=== PATIENT | male | born 1940 | race Caucasian/White ===

== ENCOUNTER 2017-07-31 06:30 | Day surgery (SDC) | payer MEDICARE, OTHER ==
[~2017-07-31] VITALS: Ht 185.4 cm; Wt 89.8 kg
[~2017-07-31 06:30] MED LIST: AMBIEN5 MG PO; ASPIR-LOW81 MG PO; ASPIRIN EC81 MG PO; ASPIRIN325 MG PO; AUGMENTIN 875-1 EACH PO; CENTRUM SILVER1 EAC6 PO; DILAUDID4 MG PO; ENALAPRIL MALEA10 MG PO; FISH OIL500 MG PO; FLUOCINONIDE-E15 GM TP; HYDROCODON-ACE1 EA10 PO; INDOMETHACIN50 MG PO; IRON325 M1 PO; KEFLEX500 MG PO; LIDEX30 GM TP; NIACIN500 M1 PO; NIACIN500 M2 PO; NORCO 5-325 TA1 EACH PO; SPIRONOLACTONE25 MG PO; VASOTEC5 MG PO; VITAMIN C500 M1 PO; VITAMIN D2000 UNIT PO
--- NOTE | 2017-07-31 08:47 | NUR ---
07/31/17 0847 Pal Bacon REPOSITIONED IN BED AT 0830 AND GAVE SIPS OF WATER WITHOUT PROBLEMS. CONTINUES TO DENY NAUSEA. REVIEWED DISCHARGE INSTRUCITONS WITH PT AND AT BEDSIDE. ASSISTING PT GETTING DRESSED SITTING ON EDGE OF BED.
--- NOTE | 2017-08-01 12:56 | OR ---
[facility] [address] [place], [place] [address] Signed DATE OF OPERATION: 07/31/2017 SURGEON: Ramos Nathan MD PREOPERATIVE DIAGNOSIS: History of stage IV colon carcinoma, status post left colectomy and extended right segmentectomy in 2012. POSTOPERATIVE DIAGNOSIS: Diverticular changes of colon. No evidence of recurrent polyp or cancer. PROCEDURE: Total colonoscopy to cecum. ANESTHESIA: Intravenous sedation, fentanyl 100 mcg and Versed 4 mg. INDICATION: This 77-year-old white man is a patient of Dr. Roberto Carlos Gil. He is known to me from the past having undergone left hemicolectomy as well as subsequent right extended trisegmentectomy by Dr. Abdiel Alvarado in [place], [place] at [facility]. He has had no evidence of recurrent disease since that time. He is known to have portal hypertension with esophageal varices, but without bleeding. This is most likely related to extended trisegmentectomy. He is free of bleeding, diarrhea or constipation problems. He is here for surveillance colonoscopy. He understands the risks of bleeding, infection, and perforation related to colonoscopy and wished to proceed. FINDINGS: The prep was good. Complete colonoscopy was undertaken of the cecum without problem. There was scattered diverticula throughout the colon. There was no sign of stricture. The anastomosis was widely patent. He had no stigmata of portal hypertension at least as regards the colon. There were no polyps and no sign of recurrent cancer. DESCRIPTION OF PROCEDURE: The patient was brought to the endoscopy suite, placed in the lateral decubitus position, and given intravenous sedation to the point of slurred speech and nystagmus with full cardiopulmonary monitoring. Electronically Signed By: RAMOS NATHAN MD 08/01/17 1256 PATIENT NAME: TOPHER SULLIVAN OPERATIVE REPORT DATE OF : 42 REPORT #: [id number] PHYSICIAN: RAMOS NATHAN MD PCP: ROBERTO CARLOS GIL MD REPORT IS CONFIDENTIAL AND NOT TO BE RELEASED WITHOUT AUTHORIZATION [facility] [address] [place], [place] [address] Signed Digital rectal examination was found to be normal. An Olympus video colonoscope was passed in the rectum and manipulated throughout the colon ultimately intubating the cecum itself. The ileocecal valve and appendiceal orifice were normal. The scope was withdrawn from that point and examination throughout showed no sign of abnormality other than diverticula scattered throughout the colon including the right side. Retroflexed view of the rectum was normal. Scope was removed. The patient was taken to the recovery room in good condition. CONCLUDING DIAGNOSIS: No sign of recurrent cancer or polyps of colon. Diverticulosis, clinically silent. PLAN: He will continue with active monitoring. He will return to the ongoing care of his primary physician, Dr. Gil. He is nearing five years since the definitive treatment of stage IV colon cancer and is quite pleased. MD SÁNCHEZ Joseph/MODL /[id number] cc: Osito Colbert MD [place], [place] MD Roberto Carlos Valencia MD Copies: TETEABDIEL DOUGLAS MD, MD Electronically Signed By: RAMOS NATHAN MD 08/01/17 1256 PATIENT NAME: TOPHER SULLIVAN OPERATIVE REPORT DATE OF : 42 REPORT #: [id number] PHYSICIAN: RAMOS NATHAN MD PCP: ROBERTO CARLOS GIL MD REPORT IS CONFIDENTIAL AND NOT TO BE RELEASED WITHOUT AUTHORIZATION [address] [address] Signed ROBERTO CARLOS GIL MD Electronically Signed By: RAMOS NATHAN MD 08/01/17 1256 PATIENT NAME: TOPHER SULLIVAN OPERATIVE REPORT DATE OF : 42 REPORT #: [id number] PHYSICIAN: RAMOS NATHAN MD PCP: JOCELIN,ROBERTO CARLOS GO MD REPORT IS CONFIDENTIAL AND NOT TO BE RELEASED WITHOUT AUTHORIZATION
== END 2017-07-31 08:50 | disposition home or self-care (01) ==
LOC: OPS 06:30 → DS 06:30 → OPS 06:45
PROVIDERS: Surgery
PROC: 0DJD8ZZ Inspection of Lower Intestinal Tract, Via Natural or Artificial Opening Endoscopic (ICD-10-PCS; principal; 2017-07-31 06:45)
DX: Z12.11 Encounter for screening for malignant neoplasm of colon (principal); K57.30 Diverticulosis of large intestine without perforation or abscess without bleeding; I10 Essential (primary) hypertension; C78.7 Secondary malignant neoplasm of liver and intrahepatic bile duct; K43.2 Incisional hernia without obstruction or gangrene; D69.6 Thrombocytopenia, unspecified; K76.6 Portal hypertension; I85.00 Esophageal varices without bleeding; Z85.038 Personal history of other malignant neoplasm of large intestine; Z90.49 Acquired absence of other specified parts of digestive tract; Z80.0 Family history of malignant neoplasm of digestive organs; Z87.891 Personal history of nicotine dependence; Z98.890 Other specified postprocedural states
CPT/HCPCS: 99153; G0500; J2250; J3010; J7120

== ENCOUNTER 2018-09-07 06:25 | Day surgery (SDC) | payer MEDICARE, OTHER ==
[~2018-09-07] VITALS: Ht 185.4 cm; Wt 88.0 kg
--- NOTE | 2018-09-07 08:26 | NUR ---
09/07/18 0826 Birgit Daily 0815 PATIENT ARRIVES TO PACU AWAKE, BUT DROWSY. ANSWERS QUESTIONS APPROPRIATELY. RESP EVEN AND UNLABORED, NC AT 3 LITERS TURNED OFF ON ARRIVAL TO PACU, ROOM AIR SATS >95%. DENIES PAIN OR NAUSEA. 0820 PATIENT AWAKE, BUT DROWSY. RESP EVEN AND UNLABORED, ROOM AIR SATS CONTINUE TO BE ABOVE 95%.
--- NOTE | 2018-09-07 09:49 | NUR ---
PT IS ALERT, ORIENTED AND SUPPORTED BY HIS DAVE. BECAUSE OF PT'S MED HISTORY, HE STAYS VERY REGULAR WITH SCOPES-YEARLY. HE ADMITTTED THAT THEY ALWAYS BRING SOME ANXIOUS MOMENTS, BUT WORKS TO STAY POSITIVE. HE STAYS VERY ACTIVE, AND IS WILLING TO JUST TAKE ONE DAY AT A TIME. PT DID REQUEST PRAYER, WILL FOLLOW NEEDED
--- NOTE | 2018-09-07 20:09 | OR ---
[facility] [address] [place], [place] [address] Signed DATE OF OPERATION: 09/07/2018 SURGEON: Ramos Nathan MD PREOPERATIVE DIAGNOSES: 1. History of extended left colectomy for colon cancer in 2012. 2. History of right trisegmentectomy of liver for metastatic colon cancer. 3. Subsequent portal hypertension with chronic thrombocytopenia. POSTOPERATIVE DIAGNOSES: 1. Mild cecal inflammation. 2. Small polyp of right colon (excised). PROCEDURE: Total colonoscopy to cecum with biopsy of cecum and hot snare polypectomy x1 of right colon polyp. ANESTHESIA: Intravenous sedation, fentanyl 100 mcg, Versed 4 mg. INDICATION: 78-year-old white man, is patient Dr. Roberto Carlos Gil. He underwent left colectomy by ca for a large colon cancer in 2012, noted to have metastatic lesion to the right lobe of the liver, undergoing extended right trisegmentectomy by Dr. Jordan Alvarado at [facility]. The patient has been free of disease since that time. He did have resultant portal hypertension. He does have chronic thrombocytopenia without complication otherwise. He was admitted for surveillance colonoscopy; understood the risks of bleeding, infection, and perforation. FINDINGS: The prep was good. Complete colonoscopy was undertaken of the cecum. The anastomosis was widely patent. There was mild inflammation of the cecum, but not elsewhere. Biopsies were obtained. There was a small adenomatous polyp of the right colon, which was excised with hot snare polypectomy technique. Unfortunately, specimen was lost and could not be retrieved despite efforts to do so. DESCRIPTION OF PROCEDURE: The patient was brought to the endoscopy suite and placed in lateral decubitus position given intravenous sedation to the point of slurred speech and nystagmus. Digital rectal examination was normal. An Olympus video colonoscope was passed in the rectum and Electronically Signed By: RAMOS NATHAN MD 09/07/182008 PATIENT NAME: TOPHER SULLIVAN OPERATIVE REPORT DATE OF : 42 REPORT #: [id number] PHYSICIAN: RAMOS NATHAN MD PCP: ROBERTO CARLOS GIL MD REPORT IS CONFIDENTIAL AND NOT TO BE RELEASED WITHOUT AUTHORIZATION [facility] [address] [place], [place] [address] Signed manipulated beyond the lower colonic anastomosis ultimately to the cecum. Ileocecal valve and appendiceal orifice were identified. He did appear to have mild cecal inflammation. Biopsies were obtained there without untoward bleeding. The scope was withdrawn and a small adenomatous appearing polyp was noted of the distal ascending colon. This was excised with hot snare polypectomy technique. Abrupt excision of the polyp with the snare caused it to detach rather rapidly and despite efforts to find it was never really retrieved. Trap had been placed in the endoscopy equipment, but subsequent evaluation showed no sign of polyp there either. The scope was withdrawn and examination throughout the remaining colon showed no sign of abnormality. The anastomosis was widely patent without deformity. Retroflexed view was normal. There was no sign of rectal varices. Scope was removed. The patient was taken to recovery room in good condition. CONCLUDING DIAGNOSIS: Small polyp, mild cecal inflammation, otherwise normal. PLAN: Repeat colonoscopy in 3 years sooner if symptoms. He will return to the ongoing care of Dr. Gil. Ramos Nathan MD JM/MODL /[id number] cc: MD Roberto Carlos Valencia MD Copies: ORALIA ALVARADO MD, RUSSELL BARR MD ~ Electronically Signed By: RAMOS NATHAN MD 09/07/182008 PATIENT NAME: TOPHER SULLIVAN OPERATIVE REPORT DATE OF : 42 REPORT #: [id number] PHYSICIAN: RAMOS NATHAN MD PCP: ROBERTO CARLOS GIL MD REPORT IS CONFIDENTIAL AND NOT TO BE RELEASED WITHOUT AUTHORIZATION
== END 2018-09-07 09:00 | disposition home or self-care (01) ==
LOC: DS 06:25 → OPS 06:25 → DS 06:45 → OPS 06:45
PROVIDERS: Surgery
PROC: 0DBH8ZX Excision of Cecum, Via Natural or Artificial Opening Endoscopic, Diagnostic (ICD-10-PCS; 2018-09-07)
PROC: 0DBK8ZZ Excision of Ascending Colon, Via Natural or Artificial Opening Endoscopic (ICD-10-PCS; principal; 2018-09-07 07:30)
DX: Z12.11 Encounter for screening for malignant neoplasm of colon (principal); K63.5 Polyp of colon; K37 Unspecified appendicitis; D69.6 Thrombocytopenia, unspecified; I10 Essential (primary) hypertension; Z85.46 Personal history of malignant neoplasm of prostate; Z85.038 Personal history of other malignant neoplasm of large intestine; Z90.49 Acquired absence of other specified parts of digestive tract; Z85.05 Personal history of malignant neoplasm of liver
CPT/HCPCS: 99153; G0500; J2250; J3010; J7120

== ENCOUNTER 2018-09-07 17:15 | Inpatient (IN) | payer MEDICARE, OTHER ==
[~2018-09-07] VITALS: Ht 185.4 cm; Wt 91.3 kg
--- NOTE | 2018-09-07 19:45 | NUR ---
PT ARRIVED VIA STRETCHER, HE IS A & O, RR IS EVEN AND NONLABORED. VS TAKEN AND ENTERED. PT HAS A FEVER, PRIMARY RN AWARE AND WILL START OFIRMEV SOON. PT IS ORIENTED TO THE ROOM AND CALL LIGHT IS CLOSE.
--- NOTE | 2018-09-07 20:20 | NUR ---
COMPLETED PTS HISTORY AND HE DENIES NEEDS AT THIS TIME. IV BOLUS IS INFUSING. CALL LIGHT IS WITHIN REACH.
--- NOTE | 2018-09-07 21:20 | NUR ---
STARTED A 2ND IV ON PT DUE TO INCOMPATABLE IV FLUIDS AND ABX. PT TOLERATED IT WELL. WILL START IV ABX SOON IT IS RETRIEVED FROM THE SUPERVISORS ROOM WE DO NOT HAVE IT AVAILABLE ON THE FLOOR.
--- NOTE | 2018-09-07 21:50 | NUR ---
BOLUS IS COMPLETE, STARTED NORMAL IV FLUIDS. SPOKE WITH ENROLLMENT SERVICES VICE PRESIDENT ABOUT IV ABX AGAIN, SHE WILL BRING IT SHORTLY.
--- NOTE | 2018-09-07 23:01 | NUR ---
ASSESSMENT COMPLETE, SCHEDULED MEDICATIONS RECETLY ADMINISTERED BY THIS RN (SEE EMAR FOR DETAILS). PT A/OX4, DENIES PAIN. PT AFEBRILE AT THIS TIME, VSS. IV FLUIDS AND IV ABX INFUSING, IV SITES WNL. BOWEL TONES ACTIVE, PT DENIES NAUSEA, BUT REPORTS FEELING "BLOATED". MILD DISTENTION NOTED TO RIGHT OF UMBILLICUS, PT STATES, "IT'S FROM MY HERNIA, IT STARTED OUT REALLY SMAL. I'VE HAD IT FOR AROUND 4 YEARS, DR NATHAN HAS SEEN IT. I WEAR A BACK BRACE WHEN I PLAY TENNIS". PT DENIES ADDITIONAL NEEDS, WATER AT BEDSIDE, FAMILY IN ROOM. CALL LIGHT IN REACH.
--- NOTE | 2018-09-08 01:00 | NUR ---
PT RESTING IN BED, EYES CLOSED, RR WNL. PT APPEARS COMFORTABLE, NO DISTRESS NOTED. IV FLUIDS INFUSING PER MD ORDERS, SITE WNL. IN ROOM. CALL LIGHT IN REACH.
--- NOTE | 2018-09-08 04:11 | NUR ---
SPOKE TO RICKY FROM TELEPHARMACY TO HAVE PT'S MEROPENEM RETIMED (SEE NOTE FROM JANNETTE FOR DETAILS).
--- NOTE | 2018-09-08 06:30 | NUR ---
IV ABX INFUSING, SITE X2 WNL. IV FLUIDS ALSO INFUSING PER MD ORDERS. PT A/OX4, DENIES PAIN. SCHEDULED IV ABX INFUSING. ASSESSMENT COMPLETE, NO NEW CONCERNS, VSS. PT ON RA, NO DISTRESS NOTED. CALL LIGHT IN REACH.
--- NOTE | 2018-09-08 06:34 | NUR ---
VITALS AND I&OS DONE AND CHARTED. BEDSIDE TABLE AND CALL LIGHT IN REACH. PT NEEDS NOTHING AT THIS TIME.
--- NOTE | 2018-09-08 07:40 | NUR ---
PATIENT RESTING IN BED. IN ROOM. ICE CHIPS GIVEN. CALL LIGHT WITHIN REACH. NO OTHER NEEDS AT THIS TIME
--- NOTE | 2018-09-08 08:03 | NUR ---
0600 HR 57. BP ABOVE PARAMETERS. PT ASYMPTOMATIC, EARLIER PT STATED, "IT'S BETTER SINCE I STARTED WORKING OUT". MANUFACTURING SCHEDULER ANN-MARIE AWARE, AGREES NO NEED TO NOTIFY MD AT THIS TIME.
--- NOTE | 2018-09-08 09:26 | NUR ---
PATIENT RESTING IN BED. IN ROOM. VITAL SIGNS AND I&O DONE. CALL LIGHT WITHIN REACH. NO OTHER NEEDS AT THIS TIME
--- NOTE | 2018-09-08 10:20 | NUR ---
ENCOURAGED PT TO TAKE A WALK. PT DECLINED TO HAVE WINDOW BLINDS DRAWN OPEN AT THIS TIME.
--- NOTE | 2018-09-08 10:45 | NUR ---
PATIENT RESTING IN BED. PATIENT ASKS FOR ICE CHIPS AND COFFEE FOR HIS . ICE CHIPS AND COFFEE GIVEN. CALL LIGHT WITHIN REACH. NO OTHER NEEDS AT THIS TIME
--- NOTE | 2018-09-08 11:30 | NUR ---
Admin tylenol 1000mg for reports of head and body ache/pain. Personal supplies and call light within reach. Pt requesting to take a nap as he states he has a headache.
--- NOTE | 2018-09-08 11:34 | NUR ---
Pt's heart rate increased this am after her am walk, trending from 120-140bpm. Dr. Hernandez on unit and aware. Additional dose of lopressor given by VAUGHN Hays. Pt sitting up in chair at this time folding towels, no distress noted.
--- NOTE | 2018-09-08 13:38 | NUR ---
PATIENT RESTING IN BED. VITAL SIGNS AND I&O DONE. LOW SYSTOLIC BLOOD PRESSURE. RN NOTIFIED. CALL LIGHT WITHIN REACH. NO OTHER NEEDS AT THIS TIME
--- NOTE | 2018-09-08 13:58 | NUR ---
PT UP WALKING IN HALLWAY, TOLERATING WELL.
--- NOTE | 2018-09-08 14:02 | EKG ---
[facility] [address] [facility] [place], [place] [address] Signed Normal sinus rhythm Right bundle branch block Abnormal ECG No previous ECGs available Confirmed by MARTHA MILLS DO ([id number]) on 09/08/2018 2:02:07 PM Electronically Signed By: MARTHA MILLS DO 09/08/18 1402 PATIENT NAME: LAURIETOPHER CONNIE Electrocardiogram DATE OF : 42 PHYSICIAN: MARTHA MILLS DO REPORT #: [id number] REPORT IS CONFIDENTIAL AND NOT TO BE RELEASED WITHOUT AUTHORIZATION
--- NOTE | 2018-09-08 17:40 | NUR ---
PATIENT SITTING UP IN BED. VITAL SIGNS DONE. CALL LIGHT WITHIN REACH. NO OTHER NEEDS AT THIS TIME
--- NOTE | 2018-09-08 17:46 | NUR ---
PT MADE INPATIENT AND LOW FIBER DIET EDUCATION PROVIDED TO PT.
--- NOTE | 2018-09-08 19:15 | NUR ---
SHIFT REPORT RECEIVED FROM DAYSDCFT VAUGHN CARDONA AT BEDSIDE. PT AWAKE AND RESTING IN BED, DENIES PAIN. D5LR INFUSING AT 85 MLS/HR, IV SITE WNL. PT APPEARS IN GOOD SPIRITS, JOKING AND INTERACTING WITH STAFF. NO NEEDS AT THIS TIME. CALL LIGHT IN REACH.
--- NOTE | 2018-09-08 20:53 | NUR ---
VITALS AND I&OS DONE AND CHARTED. BEDSIDE TABLE AND CALL LIGHT IN REACH. URINAL ON TABLE WELL PER HIS REQUEST.
--- NOTE | 2018-09-08 21:10 | NUR ---
ASSESSMENT COMPLETE, SCHEDULED MEDICATIONS GIVEN (SEE EMAR). NEW BAG OF IV FLUIDS INFUSING, IV SITE WNL. PT A/OX4, VSS, PT DENIES PAIN. NO NAUSEA NOTED, BOWEL TONES ACTIVE. PT APPEARS TO BE IN GOOD SPIRITS, DENIES NEEDS. FRESH WATER AT BEDSIDE. WIPES PROVIDED TO ASSIST WITH TELE PAD REMOVAL PER PT REQUEST. CALL LIGHT IN REACH.
--- NOTE | 2018-09-08 23:48 | NUR ---
PT RESTING IN BED, EYES CLOSED, RR WNL. NO DISTRESS NOTED. IV FLUIDS INFUSING PER MD ORDERS (SEE EMAR). URINAL AT BEDSIDE EMPTIED. CALL LIGHT IN REACH.
--- NOTE | 2018-09-09 01:35 | NUR ---
ASSESSMENT COMPLETE, NO NEW CONCERNS. ORAL TEMP OF 99.1. PT RESTING IN BED AND UNDER COVERS, DENIES SHAKES OR CHILLS. BOWEL TONES ACTIVE, PT DENIES NAUSEA. IV FLUIDS INFUSING PER MD ORDERS, IV SITE WNL. BEDSIDE URINAL EMPTIED, 450 MLS OUTPUT. NO NEW CONCERNS, CALL LIGHT IN REACH.
--- NOTE | 2018-09-09 05:35 | NUR ---
PT WAS SITTING UP AT THE EDGE OF THE BED, ENTERED ROOM AND HE ASKED TO USE THE RESTROOM. HE AMBULATED WITH 1PA AND FWW TO THE RESTROOM AND BACK TO BED. HE HAD A LARGE LIQUID BM. PT IS BACK IN BED WITH FRESH ICEWATER AT BEDSIDE. HE DENIES FURTHER NEEDS. CALL LIGHT IS CLOSE AND BED ALARM IS ON.
--- NOTE | 2018-09-09 06:23 | NUR ---
PT HAD UNEVENTFUL NIGHT, SLEPT FOR MOST OF SHIFT. VSS, PT ON RA. IV FLUIDS INFUSING PER MD ORDERS, SITE WNL. PT AMBULATES INDEPENDENTLY. DENIES PAIN THIS SHIFT. NO NAUSEA, BOWEL TONES ACTIVE.SCHEDULED PO ABX. USES CALL LIGHT APPROPERIATELY.
--- NOTE | 2018-09-09 06:30 | NUR ---
VITALS AND I&OS DONE AND CHARTED. FRESH ICE WATER GIVEN. BEDSIDE TABLE AND CALL LIGHT IN REACH. PT NEEDS NOTHING MORE AT THIS TIME.
--- NOTE | 2018-09-09 07:34 | NUR ---
PT REPORTED MILD REDDNESS AT PREVIOUS IV SITE TO RIGHT FOREARM. SITE DISCONTINUED ON DAYSHIFT 08/08/18. NO EDEMA NOTED. PT REPORTED THIS DURING SHIFT REPORT. DAYSHIFT VAUGHN ARTEAGA.
--- NOTE | 2018-09-09 08:11 | NUR ---
PT SITTING UP IN BED EATING BREAKFAST, MARY WELL. DENIES PAIN OR NAUSEA STATES "I JUST FEEL LANDON BLOATED." REPORTS PASSING GAS. HYPERACTIVE BT. ALERT AND ORIENTED TO ALL, INDEPENDENT IN ROOM. IV INFUSING IN LEFT ARM, SITE WITHOUT REDNESS OR INFLAMMATION, DRESSING CDI. SMALL REDDENED AREA TO RIGHT FOREARM WHERE PREVIOUS IV WAS, WILL MONITOR. CALL LIGHT WITHIN REACH.
--- NOTE | 2018-09-09 10:05 | NUR ---
PT ARELI CHAPA INDEPENDENTLY, MARY WELL.
--- NOTE | 2018-09-09 11:40 | NUR ---
PT RESTING IN BED, EYES CLOSED, APPEARS TO BE SLEEPING. RESP EVEN AND UNLABORED.
--- NOTE | 2018-09-09 14:00 | NUR ---
PT SITTING UP IN BED WATCHING TV. AT BEDSIDE. DENIES PAIN OR OTHER CONCERNS. INDEPENDENT IN ROOM. CALL LIGHT WITHIN REACH.
--- NOTE | 2018-09-09 14:14 | NUR ---
PATIENT SITTING UP IN BED. VITAL SIGNS AND I&O DONE. CALL LIGHT WITHIN REACH. NO OTHER NEEDS AT THIS TIME
[2018-09-09] MEDS ORDERED: TYLENOL325 MG PO ×2 (14:36)
[2018-09-09] MEDS ORDERED: CIPROFLOXACIN500 MG PO ×2 (14:36)
[2018-09-09] MEDS ORDERED: FAMOTIDINE20 MG PO ×2 (14:36)
[2018-09-09] MEDS ORDERED: METRONIDAZOLE250 MG PO ×2 (14:36)
--- NOTE | 2018-09-09 15:18 | HP ---
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 HISTORY OF PRESENT ILLNESS: This 78-year-old white man, who is well known to me from the past. He remains a patient of Dr. Gil. He underwent colonoscopy by me today with hot snare polypectomy of a right colon small polyp, which was not elaborate, complex, deep, or otherwise worrisome. Additionally, he underwent biopsy of his cecum from mild inflammatory change there. The patient has a distant history of left colectomy for colon cancer, which was stage IV, subsequently requiring extended right trisegmentectomy of the liver. He has been free of any tumor or problem since that time (). The patient did ultimately developed portal hypertension in part related to his extended trisegmentectomy, but he has had no clinical bleeding problems. His platelet count recently was 55,000, hematocrit was normal and he is otherwise fine. Following his colonoscopy today, he went home with his as planned and had some food and liquids without problem and felt reasonably well. He called me approximately an hour or so ago at home saying that he was having tremulousness and generalized bloating and not feeling well. This of course is the number of hours later following his colonoscopy, which was at approximately 8:30 in the morning. He presented to the emergency room, where he was found to be febrile with a temperature of 103.3, pulse of 97, respiratory rate of 18, blood pressure 156/83, and pulse oximetry saturation of 98%. He did have an episode of a considerable amount of vomiting and subsequently some passage of air, but no blood per rectum. He passed colonoscopy related gas in the recovery room and at home prior to his arrival here. For reasons not entirely explicable, the through put through the ER has been delayed tonight related to lab delays and so forth. A CT scan was planned and ordered, has not yet been performed, now waiting for his creatinine level. I note that his creatinine level actually has returned and is normal at 0.96. The CT scan is still anticipated. Electronically Signed By: RAMOS NATHAN MD 09/09/18 1518 PATIENT NAME: TOPHER SULLIVAN HISTORY AND PHYSICAL DATE OF : 42 REPORT #: [id number] PHYSICIAN: RAMOS NATHAN MD PCP: ROBERTO CARLOS GIL MD REPORT IS CONFIDENTIAL AND NOT TO BE RELEASED WITHOUT AUTHORIZATION [facility] [address] [place], [place] [address] Signed REVIEW OF SYSTEMS: He denies any shortness of breath or chest pain. He has had no blood per rectum or hematemesis. He does feel somewhat better since his vomiting. PHYSICAL EXAMINATION: GENERAL: Pleasant white man, who does not look toxic particularly. He is accompanied by his . HEENT: Mucous membranes are reasonably moist. Trachea is midline. CHEST: Shows normal respiratory excursion. No tachypnea. ABDOMEN: Soft and there is no focal tenderness that I can tell. The confluence of his subcostal and midline upper abdominal incision has a hernia, which is reducible and well known to me from the past. ABDOMEN: Shows mild distention, but not much. Again, no tenderness is noted. EXTREMITIES: Show no clubbing, cyanosis, or edema. LABORATORY STUDIES: Showed normal electrolytes. Glucose is 119. His lactic acid is 1.8, calcium 9.1, total bilirubin 1.9. Liver enzymes are normal. Lipase normal at 14. CBC shows a white count of 7.3, hematocrit 43.3, platelets 64,000 (not a new finding). Neutrophils are 85.1%. Urinalysis is pending. 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 This represents an electrocautery related thermal phenomenon of the bowel with subsequent abdominal pain, distention, sometimes fever, and so forth. At worst, he would have a perforation (which might be a micro perforation). Since the Emergency Room is rather overwhelmed at present with other patients, I have recommended direct admission to the hospital, IV antibiotics, parenteral fluids, minimal oral intake, bowel rest, and we will still plan to obtain the CT scan as ordered. If free areas noted or obvious perforation is identified, then he may require operative management. We discussed this in detail. He and his agree. MD SÁNCHEZ Joseph/ANGELINAL /[id number] Electronically Signed By: RAMOS NATHAN MD 09/09/18 1518 PATIENT NAME: TOPHER SULLIVAN HISTORY AND PHYSICAL DATE OF : 42 REPORT #: [id number] PHYSICIAN: RAMOS NATHAN MD PCP: ROBERTO CARLOS GIL MD REPORT IS CONFIDENTIAL AND NOT TO BE RELEASED WITHOUT AUTHORIZATION [address] [address] Signed Copies: ~ Electronically Signed By: RAMOS NATHAN MD 09/09/18 1518 PATIENT NAME: TOPHER SULLIVAN HISTORY AND PHYSICAL DATE OF : 42 REPORT #: [id number] PHYSICIAN: RAMOS NATHAN MD PCP: ROBERTO CARLOS GIL MD REPORT IS CONFIDENTIAL AND NOT TO BE RELEASED WITHOUT AUTHORIZATION
== END 2018-09-09 15:57 | disposition home or self-care (01) | DRG 394 ==
LOC: ED 17:15 → MS 17:16
PROVIDERS: ADMIT Surgery
DX: K91.89 Other postprocedural complications and disorders of digestive system (principal); K76.6 Portal hypertension; R50.82 Postprocedural fever; R11.10 Vomiting, unspecified; D69.59 Other secondary thrombocytopenia; R16.1 Splenomegaly, not elsewhere classified; Z85.038 Personal history of other malignant neoplasm of large intestine; Z86.010 Personal history of colon polyps
CPT/HCPCS: 36415; 74177; 80053; 81001; 83605; 83690; 83735; 85025; 93005; 93010; 94760; 96374; 99284-25; J0131; J2185; J2405; J7030; J7120; Q9967

== ENCOUNTER 2020-05-04 11:54 | Day surgery (SDC) | payer MEDICARE, OTHER ==
[~2020-05-04] VITALS: Ht 180.3 cm; Wt 86.2 kg
[~2020-05-04 11:54] MED LIST changes: +CIPROFLOXACIN500 MG PO; +FAMOTIDINE20 MG PO; +METRONIDAZOLE250 MG PO; +PROPRANOLOL HCL10 MG PO; +TYLENOL325 MG PO
[2020-05-04] MEDS ORDERED: OMEPRAZOLE20 MG PO (12:16)
[2020-05-04] MEDS ORDERED: K-TAB ER20 MEQ PO (12:16)
--- NOTE | 2020-05-04 13:30 | NUR ---
05/04/20 1330 Aura Logan 1324- PT ARRIVES TO PACU EASILY AROUSABLE TO VOICE. PT FALLS INSTANTLY BACK TO SLEEP. RESP EVEN AND UNLABORED. OXYGEN SAT HIGH 90'S TO 100% ON 2L VIA NC.
--- NOTE | 2020-05-06 11:57 | PATH ---
[facility] [address] [place], [place] [address] Signed SPECIMEN(S): A PROXIMAL STOMACH SPECIMEN SOURCE: A. PROXIMAL STOMACH CLINICAL HISTORY: Esophageal varices. Portal hypertension. Pancytopenia. Proximal gastritis. MICROSCOPIC DESCRIPTION: Histologic sections of all submitted blocks are examined by light microscopy. These findings, together with the gross examination, support the pathologic diagnosis. FINAL PATHOLOGIC DIAGNOSIS: Stomach, proximal, biopsy: - Oxyntic mucosa with mild fundic gland dilation, suggestive of fundic gland polyp. - Negative for Helicobacter organisms on HE stain. - Negative for dysplasia or malignancy. NAL:[facility]:C2NR GROSS DESCRIPTION: The specimen, labeled "DG," and designated on the requisition "proximal stomach biopsy," is received in formalin and consists of one lindo soft tissue fragment that measures 0.4 cm in greatest dimension. The specimen is entirely submitted in cassette (A1). AI (under the direct supervision of a pathologist) The Gross Description was prepared using a voice recognition system. The report was reviewed for accuracy; however, sound-alike word errors, addition and/or deletions may occur. If there is any question about this report, please contact Client Services. PERFORMING LABORATORY: The technical component was performed by [employer], [address] [place] [id number] (Try Out Person: Lindsey Kenney MD; CLIA# [id number]). [facility], [address] [address] (CLIA# [id number]). Diagnostician: Nel Johnson MD Pathologist Electronically Signed 05/06/2020 PATIENT NAME: TOPHER SULLIVAN PATHOLOGY DATE OF : 42 REPORT #: [id number] PHYSICIAN: [facility] PCP: ROBERTO CARLOS MONREAL MD REPORT IS CONFIDENTIAL AND NOT TO BE RELEASED WITHOUT AUTHORIZATION [address] [address] Signed Copies: ~ PATIENT NAME: TOPHER SULLIVAN PATHOLOGY DATE OF : 42 REPORT #: [id number] PHYSICIAN: [facility] PCP: ROBERTO CARLOS MONREAL MD REPORT IS CONFIDENTIAL AND NOT TO BE RELEASED WITHOUT AUTHORIZATION
--- NOTE | 2020-05-07 17:33 | OR ---
[facility] [address], [place] [address] Signed DATE OF OPERATION: 05/04/2020 SURGEON: Ramos Nathan MD PREOPERATIVE DIAGNOSES: 1. Known portal hypertension with esophageal varices, initiation of propranolol therapy one year ago. 2. History of left colectomy and subsequent right trisegmentectomy for metastatic colon cancer in 2013. 3. Thrombocytopenia, neutropenia and normal hematocrit. POSTOPERATIVE DIAGNOSES: 1. Esophageal varices without change. 2. Proximal gastritis without ulceration. PROCEDURE: Esophagogastroduodenoscopy with biopsy and application of hemoclips. ANESTHESIA: Intravenous sedation, fentanyl 100 mcg and Versed 3 mg. INDICATION: This 80-year-old white man is a patient of Dr. Gil. He is known to me from the past having undergone left colectomy for colon cancer in 2012. Subsequently, undergoing right trisegmentectomy for metastatic colon cancer to the liver by Dr. Abdiel Alvarado at [facility] in [place]. The patient has had no evidence of recurrent disease and a few years ago, did develop thrombocytopenia and found to have portal hypertension. He has had varices noted on upper endoscopy. A year ago, he had anemia and an ulcerated lesion of the stomach, which was ultimately medically treated and he has recovered from that. He is no longer anemic, but remains thrombocytopenic. No doubt related to his splenomegaly and portal hypertension as well as neutropenic with a white count of 2.3. The patient has had no exposure or known COVID disease. He was started on propranolol a year ago to decrease chances of variceal bleeding. He has had no overt bleeding. Has no blood per rectum or hematemesis. He is admitted to undergo upper endoscopy to assess the status of his varices and peptic disease from the past. He understands the risk of bleeding, infection, perforation, and so forth and wished to proceed. FINDINGS: Electronically Signed By: RAMOS NATHAN MD 05/07/20 1733 PATIENT NAME: TOPHER SULLIVAN OPERATIVE REPORT DATE OF : 42 REPORT #: [id number] PHYSICIAN: RAMOS NATHAN MD PCP: ROBERTO CARLOS GIL MD REPORT IS CONFIDENTIAL AND NOT TO BE RELEASED WITHOUT AUTHORIZATION [facility] [address] [place], [place] [address] Signed He had grade 3 esophageal varices. None of the varices showed stigmata of recent bleeding. These certainly were smaller in size than they were a year ago. Stomach showed proximal gastritis, but no jj ulceration. The antrum and the duodenum were normal. CLOtest biopsy was negative 15 minutes post procedure. Hemoclips were applied to the biopsy site and the proximal stomach. DESCRIPTION OF PROCEDURE: The patient was brought to the endoscopy suite and placed in lateral decubitus position after undergoing topical lidocaine spray anesthesia. He was given intravenous sedation to the point of slurred speech and nystagmus with full cardiopulmonary monitoring. A bite block was placed. An Olympus video upper endoscope was passed in the hypopharynx. Vocal cords and surrounding soft tissue appeared normal. Scope was easily passed into the esophagus. Approximately mcfp to 1/[address] esophageal varices were quite evident. There was serpiginous course and size consistent with grade 3 varices. The scope was advanced ultimately into the stomach. Stomach showed no sign of blood or clot or other abnormality. Rugal folds were normal. Scope was passed to the antrum which was reasonably normal. Pylorus was normal. Scope was passed through into the duodenum, which was normal. The scope was withdrawn and retroflexed view undertaken. The proximal stomach had some amount of gastritis, but no obvious gastric varices. Biopsies were taken of the proximal stomach. CLOtest biopsy was taken in the mid stomach. The scope was straightened and irrigation undertaken of the biopsy site and proximal stomach but persistent oozing prompted hemoclip application x2 with good hemostatic effect. The scope was withdrawn. The distal esophagus proper appeared reasonably normal, but soon thereafter upon withdrawal of scope, serpiginous large esophageal varices were noted. The scope was withdrawn further. There were no other findings. Of note, the scope was removed and the patient was taken to the recovery room in good condition. CONCLUDING DIAGNOSES: Persistent grade 3 esophageal varices and proximal gastritis. PLAN: We would recommend continued use of propranolol and PPI medication. We will review and see if there is any role in his particular circumstance for variceal banding. MD SÁNCHEZ Joseph/MODL Electronically Signed By: RAMOS NATHAN MD 05/07/20 2327 PATIENT NAME: TOPHER SULLIVAN OPERATIVE REPORT DATE OF : 42 REPORT #: [id number] PHYSICIAN: RAMOS NATHAN MD PCP: ROBERTO CARLOS GIL MD REPORT IS CONFIDENTIAL AND NOT TO BE RELEASED WITHOUT AUTHORIZATION [address] [address] Signed /[id number] cc: MD Roberto Carlos Valencia MD Copies: ABDIEL ALVARADO MD, RUSSELL BARR MD ~ Electronically Signed By: RAMOS NATHAN MD 05/07/20 1733 PATIENT NAME: LAURIETOPHER CONNIE OPERATIVE REPORT DATE OF : 42 REPORT #: [id number] PHYSICIAN: RAMOS NATHAN MD PCP: ROBERTO CARLOS GIL MD REPORT IS CONFIDENTIAL AND NOT TO BE RELEASED WITHOUT AUTHORIZATION
== END 2020-05-04 14:15 | disposition home or self-care (01) ==
LOC: OPS 11:54 → DS 11:58 → OPS 13:00 → DS 14:00 → OPS 14:15
PROVIDERS: ATTEND Surgery
PROC: 0DB68ZX Excision of Stomach, Via Natural or Artificial Opening Endoscopic, Diagnostic (ICD-10-PCS; principal; 2020-05-04 13:00)
DX: K76.6 Portal hypertension (principal); I85.10 Secondary esophageal varices without bleeding; K29.70 Gastritis, unspecified, without bleeding; K43.2 Incisional hernia without obstruction or gangrene; D70.9 Neutropenia, unspecified; D69.6 Thrombocytopenia, unspecified; R16.1 Splenomegaly, not elsewhere classified; Z85.05 Personal history of malignant neoplasm of liver; Z85.038 Personal history of other malignant neoplasm of large intestine; Z86.73 Personal history of transient ischemic attack (TIA), and cerebral infarction without residual deficits; Z87.891 Personal history of nicotine dependence; Z90.49 Acquired absence of other specified parts of digestive tract; Z80.0 Family history of malignant neoplasm of digestive organs
CPT/HCPCS: 88305; 99153; G0500; J2250; J3010; J7121

== ENCOUNTER 2021-02-05 16:21 | Inpatient (IN) | payer MEDICARE, OTHER ==
[~2021-02-05] VITALS: Ht 185.4 cm; Wt 88.8 kg
[~2021-02-05 16:21] MED LIST changes: +K-TAB ER20 MEQ PO; +OMEPRAZOLE20 MG PO
--- NOTE | 2021-02-05 22:30 | EKG ---
[facility] [address] [facility] [place], [place] [address] Signed Sinus tachycardia Right bundle branch block Abnormal ECG When compared with ECG of 07-SEP-2018 17:50, No significant change was found Confirmed by MARTHA MILLS DO ([id number]) on 02/05/2021 10:30:12 PM Electronically Signed By: MARTHA MILLS DO 02/05/212229 PATIENT NAME: TOPHER SULLIVAN Electrocardiogram DATE OF : 42 PHYSICIAN: MARTHA MILLS DO REPORT #: [id number] REPORT IS CONFIDENTIAL AND NOT TO BE RELEASED WITHOUT AUTHORIZATION
--- NOTE | 2021-02-05 22:31 | NUR ---
pt ARRIVED AT 2150. AMBULATED FROM STRETCHER TO BED. HARD OF HEARING, REPORTS HEARING AIDS ARE AT HOME. NOTED MULTIPLE LESIONS ON CHEST AND BACK, pt REPORTS THEY WERE "SPOTS" BURNED OFF TODAY. A FEW SCATTERED BRUISES NOTED. RESPIRATIONS REGULAR AND UNLABORED, DIM IN THE BASES. ARRIVED ON 2L NC, SATS MID 90'S. DISCUSSED PLAN OF CARE. IV FLUID INFUSING PER ORDERS. WATER PROVIDED. CALL LIGHT WITHIN REACH. ORIENTED TO ROOM AND UNIT.
--- NOTE | 2021-02-05 23:37 | NUR ---
ROUNDED ON pt. RESTING IN BED ON RIGHT SIDE. RESPIRATIONS REGULAR AND UNLABORED. TITRATED TO ROOM AIR. SATS MAINTAINING IN MID 90'S. CALL LIGHT WITHIN REACH.
--- NOTE | 2021-02-06 01:21 | NUR ---
pt RESTING IN BED ON BACK. SLIGHT SNORE HEARD, RESPIRATIONS REGULAR AND UNLABORED. O2 SATS MAINTAINED 94-96% ON ROOM AIR. CALL LIGHT WITHIN REACH.
--- NOTE | 2021-02-06 03:30 | NUR ---
ROUNDED ON pt. RESTING IN BED. EYES CLOSED, RESPIRATIONS REGULAR AND UNLABORED. CALL LIGHT WITHIN REACH.
--- NOTE | 2021-02-06 06:00 | NUR ---
IN TO DO ASSESSMENT. pt AWAKE TO NOISE IN THE ROOM. REPORTED HE SLEPT "OKAY" DENIED PAIN BUT NOTED A DISCOMFORT IN HIS HEAD. URINAL EMPTIED OF DARK URINE. NO OTHER CHANGES IN ASSESSMENT. ANTIBIOTIC INFUSING, NEW BAG OF FLUIDS HUNG. WARM BLANKETS APPLIED. CALL LIGHT WITHIN REACH.
--- NOTE | 2021-02-06 08:38 | NUR ---
IN PATIENT'S ROOM FOR ASSESSMENT AND VITALS. PT REPORTS THAT HE SLEPT FAIR, AND THAT HE FEELS SLIGHTLY CHILLED THIS AM. TEMP 98.4 AT THIS TIME. PRN MOTRIN GIVEN FOR A SLIGHT HEADACHE. PT NOTIFIED OF POSITIVE BLOOD CULTURE REPORT AND PLAN OF CARE DISCUSSED. PATIENT ON ROOM AIR AT THIS TIME. PT BROUGHT JELLO AND DIET 7UP PER REQUEST. PT NOTES THAT HE FEELS BETTER THAN LAST NIGHT AND WISHES HE WAS PLAYING TENNIS THIS AM. PATIENT'S ARRIVES AND IS NOW IN ROOM WITH PATIENT.
[2021-02-06] MEDS ORDERED: OMEPRAZOLE40 MG PO (11:20)
--- NOTE | 2021-02-06 11:33 | NUR ---
DR. MILLS IN TO SEE PATIENT AND PLAN OF CARE DISCUSSED. PATIENT TO ADVANCE HIS DIET TOLERATED. FOOD ORDERED FOR PATIENT AND FOR HIS .
--- NOTE | 2021-02-06 12:59 | NUR ---
DR. NATHAN IN TO SEE PATIENT. PLAN WILL BE FOR PATIENT TO HAVE A COLONOSCOPY IN A COUPLE OF DAYS, AFTER THE COLITIS HAS HAD A CHANCE TO CALM DOWN. PT WILL BE TRANSFERRED TO MED/SURG LATER TODAY.
--- NOTE | 2021-02-06 15:19 | NUR ---
REPORT GIVEN TO DULCE MENDES. PATIENT MOVED TO ROOM 112 IN BED AND ALL PERSONAL BELONGINGS TAKEN WITH PATIENT. PATIENT WAS ASKED TO VOID BEFORE MOVING AND ALTHOUGH HE DIDN'T FEEL LIKE HE NEEDED TO, WAS ABLE TO VOID 375 ML CONCENTRATED URINE. THIS URINE WAS QUITE A BIT DARKER THAN THIS MORNING'S URINE. PT STILL RECEIVING IV FLUIDS AT A RATE OF 200 ML/HR FOR 1 L, THEN WILL RETURN TO 100 ML/HR. DR. COHEN CALLED TO UPDATE ON URINE COLOR AND QUANTITY. NO ORDERS REC'D AT THIS TIME. CONTINUE TO MONITOR.
--- NOTE | 2021-02-06 15:44 | NUR ---
IN TO CHECK ON PT. PT LAYING IN BED WITH HOB AT 14 DEGREES. SON, TOPHER AT BEDSIDE. ASSESSMENT DONE AT THIS TIME. HRR, LUNGS CTA THROUGHOUT. PT DENIES PAIN AT THIS TIME. DENIES NAUSEA, VOMITING, DIARRHEA AND CONSTIPATION AT THIS TIME. PT REPORTS HE IS TOLERATING CURRENT DIET WELL AT THIS TIME. PT ALERT AND ORIENTED X 3. PUPILS ROUND AND REACTIVE. STRENGTH TO ALL EXTREMITITES STRONG AND EQUAL. NO OTHER COMPLAINTS OR REQUESTS AT THIS TIME.
--- NOTE | 2021-02-06 17:35 | NUR ---
IN TO CHECK ON PT, MEDICATIONS DUE. SON REMIANS AT BED SIDE. PT LAYING IN BED WITH HOB ELEVATED AT 14 DEGRESS. PT EATING DINNER AT THIS TIME. PT DENIES PAIN AT THIS TIME. NO OTHER CONCERNS OR REQUESTS AT THIS TIME. CALL LIGHT IN REACH.
--- NOTE | 2021-02-06 18:29 | NUR ---
IN TO CHECK ON PT. PT REPORTS " I FEEL WARM." TEMP TAKEN, 99.7 ORALLY. PT GIVEN IS, COMPLETED X 5 2250Ml. PT STATES "I AM COMFORTABLE RIGHT NOW." ROOM TEMPERATURE DECREASED. NO OTHER CONCERNS OR REQUESTS AT THIS TIME. BED RAILS X 2 UP. CALL LIGHT IN REACH.
--- NOTE | 2021-02-06 18:42 | NUR ---
Patient reports a headache at this time. Temp 99.7f. Tylenol 650mg po admin at this time.
--- NOTE | 2021-02-06 19:25 | NUR ---
BEDSIDE REPORT, PT ALERT AND ORIENTED, REPORTS NO PAIN. REQUESTS MORE WATER, THIS OS PROVIDED.
--- NOTE | 2021-02-06 20:07 | NUR ---
Pt was in bed watching television. Appeared to be alert and oriented. Talked of life experiences and past struggles with illnesses. Dipslayed accepting but hopeful attitude towards current situation. Expressed peace with outcome, regardless of prognosis. Prayed together for peace, comfort, and wisdom and discrenment for medical team.
--- NOTE | 2021-02-06 22:19 | NUR ---
PT CALLED FOR WATER AND TO USE HIS I.S. COLLECTED FORMED STOOL SAMPLE AND SENT TO LAB. PT DENIES FURTHER NEEDS. CALL LIGHT IS CLOSE.
--- NOTE | 2021-02-06 22:30 | NUR ---
PT REPORTS BURNING WITH URINATION THE LAST TWO VOIDS. DISCUSSED WITH PT THAT HE HAS URINE LAB 02/05/21, DID NOT INDICATE URINARY INFECTION. WILL MONITOR IF PAIN CONTINUES WILL CONTACT .
--- NOTE | 2021-02-07 02:02 | NUR ---
PT RESTING IN BED EYE CLOSED RR EVEN 17 BPM NO DISTRESS NOTED.
--- NOTE | 2021-02-07 05:34 | NUR ---
PT HAS HAD NO PAIN OR NAUSEA OVER SHIFT, HE DID HAVE FORMED BM, STOOL SAMPLE SENT TO LAB, HE HAS REPORTED BURNING WTIH URINATION TWICE EARLY IN SHIFT, THIS AM HE REPORTS RESOLVING, ELECTRONIC MESSAGE SENT TO . HE HAS SLEPT. ON ROOM AIR, USES URINAL AT BEDSIDE. ONE PERSON ASSIST TO INDEPENDENT IN ROOM.
--- NOTE | 2021-02-07 08:15 | NUR ---
PT AWAKE IN ROOM. PT UP TO CHAIR AND IS INDEPENDENT IN THE ROOM. CALL LIGHT IS WITHIN REACH. WHITE BOARD UPDATED. NO FURTHER NEEDS AT THIS TIME.
--- NOTE | 2021-02-07 11:26 | NUR ---
Patient sleeping in bed, respirations even and non labored. Patient has no notable distress. Patient's at bedside. No current needs. Personal supplies and call light within reach.
--- NOTE | 2021-02-07 12:24 | NUR ---
Patient visiting with his at this time. No distress. IV abx started per provider order. Patient snacking on his yogurt. Patient denies pain at this time. Personal supplies and call light within reach.
--- NOTE | 2021-02-07 13:58 | NUR ---
PT AWAKE IN BED WITH FAMILY IN ROOM. CALL LIGHT WITHIN REACH. NO FURTHER NEEDS AT THIS TIME.
--- NOTE | 2021-02-07 14:35 | CONS ---
[facility] [address] [place], [place] [address] Signed DATE OF CONSULTATION: 02/06/2021 CONSULTING PHYSICIAN: Ramos Nathan MD REQUESTING PHYSICIAN: Dr. Hernandez. PROBLEM: Admission to the hospital for sepsis and probable colitis. HISTORY: This 80-year-old white man has a complex past medical history. 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 He underwent extended left hemicolectomy by ak and subsequent extended right trisegmentectomy by Dr Alvarado at [facility] in [place], as well as chemo therapy under the direction of Dr Colbert. The patient has shown no evidence of recurrent cancer 8 years since his resection. He did subsequently have findings of portal hypertension, likely related to anatomy related to extensive hepatic resection and he has been thrombocytopenic chronically for several years. He has had no major gastrointestinal bleeding or other similar problem. He has portal hypertension, splenomegally and esophageal varices. He has been on propranolol to diminish splanchnic blood flow and diminish bleeding risk. I have conferred with DR Alvarado and his colleagues who recommended against prophylactic variceal banding. He last underwent colonoscopy and surveillance on May 04, 2020, concurrent with upper endoscopy where he was noted to have esophageal varices without change and proximal gastritis without ulceration. He remains a patient of Dr. Gil. He presented to the emergency room, was found to have sepsis, etiology uncertain. He had seen his medical oncologist, Dr. Colbert recently with no particular acute problems. He has been admitted by Dr. Hernandez and given intravenous antibiotics as the patient was noted to have chills and rigors consistent with systemic sepsis as well as associated nausea. He did have rigors, which were brief and restricted to the upper extremities and upper torso. A CT scan was performed, which showed multiple areas concerning for Electronically Signed By: RAMOS NATHAN MD 02/07/21 1435 PATIENT NAME: TOPHER SULLIVAN CONSULTATION DATE OF : 42 REPORT #: [id number] PHYSICIAN: RAMOS NATHAN MD PCP: ROBERTO CARLOS GIL MD REPORT IS CONFIDENTIAL AND NOT TO BE RELEASED WITHOUT AUTHORIZATION [facility] [address] [place] [id number] Signed "colitis." Duodenal thickening was concurrently noted. He has had no bleeding. The patient has had no recent antibiotic use and denies any diarrhea or blood per rectum. The patient was initiated on ceftriaxone and Flagyl as empiric therapy for sepsis and has improved to the point that he will now be transferred from the intensive care unit to the regular nursing floor. The patient noted no antecedent illness prior to his current situation, though he did suffer COVID disease in November for which he recovered completely. His evaluation at the time of emergency room admission included lab studies showing white count of only 5.3, hematocrit of 42.7, platelets 90003. Chem profile showing an elevated bilirubin 1.9, AST 52, alkaline phosphatase 130, ALT 47. Urinalysis, which was essentially normal and serology showing negative coronavirus or influenza subtype. C. difficile specimen was not obtained. Currently, he is feeling reasonably well and is eating yogurt at the bedside. His is present. PHYSICAL EXAMINATION: GENERAL: A pleasant white man, who is as talkative as usual. Trachea is midline. He has no hoarseness. CHEST: Shows normal respiratory excursion, pulses regular. ABDOMEN: Shows no evidence of ascites. Abdominal tone is diminished. He does have an incisional hernia. It is at the confluence of an epigastric and subcostal incision. It is reducible. There is no associated tenderness. He has no clinical evidence of ascites proper. EXTREMITIES: Show no clubbing, cyanosis, or edema. I see no petechia or caput medusa. LABORATORY DATA: Lab studies obtained show initial white count was 5.2 now 6.1, hematocrit 42.7 now 36.2, and platelet count 33777, now 98420. ASSESSMENT: I am unable to review the images myself regarding the CT scan, but will do so at the earliest opportunity. Report describes bibasilar dependent atelectasis, dense calcifications, and mitral anulus and evidence of prior liver resection. Splenomegaly was noted 17.6 cm in size. The pancreas and adrenals are unremarkable right kidney. The left kidney is normal. The gallbladder is surgically absent. There were enlarged lymph nodes within the gastrohepatic ligament and yaniv hepatis with a dominant lymph node measuring 2.2 cm. There is no evidence of small-bowel obstruction, though there is abnormal circumferential wall thickening of the duodenum with surrounding inflammatory changes, but no evidence of extraluminal gas. There is circumferential wall thickening Electronically Signed By: RAMOS NATHAN MD 02/07/21 1436 PATIENT NAME: TOPHER SULLIVAN CONSULTATION DATE OF : 42 REPORT #: [id number] PHYSICIAN: RAMOS NATHAN MD PCP: ROBERTO CARLOS GIL MD REPORT IS CONFIDENTIAL AND NOT TO BE RELEASED WITHOUT AUTHORIZATION [address] [address] Signed of the ascending colon, hepatic flexure, proximal transverse colon, and scattered diverticula elsewhere. There is colonic stool burden of splenic flexure with evidence of prior partial colectomy as previously noted. A broad neck incisional hernia is noted as expected as well. ASSESSMENT AND PLAN: The patient noted to have signs of sepsis including rigors, chills, and so forth. I see no evidence of lactic acid level, having been obtained at initial evaluation. In any case, he has been started on antibiotics. Consideration would be made to more fully assess the colitis with colonoscopy despite a relatively recent colonoscopy already performed a number of months ago. Risk of bleeding, infection, and perforation were reviewed with him. We would not anticipate to do this study at this time, but rather wait until his medical situation is clearly improved. The possibility represents ischemic colitis is relatively high in my view based on information I have, but again I have not yet seen the CT scan myself. Conferred with Dr. Hernandez regarding this. We will convert his diet to be a low-fiber, full liquid diet rather than regular diet anticipating possible bowel prep tomorrow. MD SÁNCHEZ Joseph/ANGELINAL /[id number] cc: MD Dr. Jeffery Bertrand Copies: MARTHA HERNANDEZ DO ~ Electronically Signed By: RAMOS NATHAN MD 02/07/21 1435 PATIENT NAME: TOPHER SULLIVAN CONSULTATION DATE OF : 42 REPORT #: [id number] PHYSICIAN: RAMOS NATHAN MD PCP: ROBERTO CARLOS GIL MD REPORT IS CONFIDENTIAL AND NOT TO BE RELEASED WITHOUT AUTHORIZATION
--- NOTE | 2021-02-07 15:11 | NUR ---
Per Dr. Oakes pt can advance to a low fiber diet.
--- NOTE | 2021-02-07 16:49 | NUR ---
Dinner order called to kitchen. Patient resting in bed, respirations even and non labored, no distress. Patient denies pain at this time. Personal supplies and call light within reach.
--- NOTE | 2021-02-08 02:46 | NUR ---
PT RESTING IN BED ALERT TO RN ROUNDING, HE SAID HE WAS JUST UP TO USE URINAL, URINAL EMPTIED FOR 850ML OF CLEAR YELLOW URINE, HE SAID THAT WAS TWO SEPARATE VOIDS WORTH. PT SAID HE FELT LIKE HIS ROOM WAS COLD, TURN THERMASTAT UP TWO DEGREES AND GAVE PT A BLANKET FROM THE WARMER. PT REPORTS NO PAIN, CALL LIGHT IN REACH. PT ALERT AND ORIENTED.NO FURTHER REQUESTS OR CONCERNS
--- NOTE | 2021-02-08 05:54 | NUR ---
PT HAS SLEPT WELL OVER SHIFT, HE HAS HAD NO PAIN, BOWELS ARE ACTIVE ALL FOUR QUADRANTS, HE IS TOLERATING HIS LOW FIBER SOFT DIET WELL. URINE OUT QUANTITY SUFFICIENT. NO CONCERNS THIS SHIFT.
--- NOTE | 2021-02-08 07:24 | NUR ---
Patient resting in bed, no distress, respirations even and non labored. Personal supplies and call light within reach.
--- NOTE | 2021-02-08 09:33 | NUR ---
Met with . & Mrs. Black today. They are very happy with the the care. Both state that the staff have been very porffesional, attentaive. Both state that they are happy with the care provided by Dr. Hernandez, Dr Soler, and Dr. Caicedo in the emergency department. Both compliment the staff in the ED, CCU, and the medical floor. . & Mrs. Black both feel like the nurses have done a great job explaining his medications, and explaining his care. Mr Black himself stated "there is just nothing bad that I can say." Both .& Mrs. Black are very pleasant to visit with this morning, and Mr. Mcneal is oriented to person, place, and time, and answers questions appropriately.
--- NOTE | 2021-02-08 09:48 | NUR ---
Patient in bed visiting with family at bedside. Patient denies nausea and pain. Patient showered this morning and reports feeling better. No current needs. Personal supplies and call light within reach.
--- NOTE | 2021-02-08 10:49 | NUR ---
MYRON YANCEY IN WITH PT, WILL CHECK BACK
--- NOTE | 2021-02-08 17:22 | NUR ---
Patient updated with plan of care. Bowel prep education done. Patient denies nausea at this time. IV site remains patent. Pt denies pain at this time. No needs. Encouraged patient to call if he has needs. Personal supplies and call light within reach.
--- NOTE | 2021-02-08 19:10 | NUR ---
REPORT RECEIVED FROM VAUGHN CARDONA. pt RESTING IN BED, ALMOST FINISHED WITH SECOND BOTTLE OF BOWEL PREP. NO NEEDS AT THIS TIME. CALL LIGHT IN REACH. IVF INFUSING WNL.
--- NOTE | 2021-02-08 21:25 | NUR ---
pt UP TO RESTROOM FOR BM INDEPENDENTLY. WILL USE CALL LIGHT WHEN FINISHED.
--- NOTE | 2021-02-08 21:37 | NUR ---
ASSISTED PRIMARY VAUGHN BARAJAS. V/S AND I&O'S DONE. ICE WATER REFILLED.
--- NOTE | 2021-02-08 21:53 | NUR ---
pt BACK IN BED FROM RESTROOM. DESCRIBES BM CLEAR LIQUID, "LIKE URINE SAMPLE". VERBALIZES UNDERSTANDING TO LEAVE BM IN TOILET NEXT TIME FOR DOCUMENTATION PURPOSES. ASSESSMENT COMPLETE. pt DENIES PAIN. BOWEL TONES HYPERACTIVE. ABD SOFT, NON-TENDER WITH PALPATION. pt REQUESTING BREAK FROM SCDS AT THIS TIME FOR TRIPS TO RESTROOM. IV SITES FLUSHED WNL, IVF INFUSING ORDERED. CALL LIGHT IN REACH.
--- NOTE | 2021-02-08 23:08 | NUR ---
CALL LIGHT ANSWERED. pt BACK IN BED FROM RESTROOM, CLEAR YELLOW LIQUID BM IN TOILET. BSC NEXT TO BED PER pt REQUEST. SCDS ON. pt INSTRUCTED TO CALL IF NEEDS TO GET OUT OF BED TO NOT TRIP ON SCD CORDS. VERBALIZES UNDESTANDING. CALL LIGHT IN REACH. IVF INFUSING WNL.
--- NOTE | 2021-02-09 02:08 | NUR ---
CHECKED ON pt. RESTING IN BED WITH EYES CLOSED. BREATHING UNLABORED. IVF INFUSING WNL. NO DISTRESS NOTED.
--- NOTE | 2021-02-09 04:26 | NUR ---
CALL LIGHT ANSWERED. pt STATING SCDS AREN'T WORKING RIGHT, REQUESTING A BREAK. SCDS REMOVED AT THIS TIME. ASSESSMENT COMPLETE. pt DENIES PAIN, DENIES NAUSEA. BOWEL TONES ACTIVE X 4, ABD SOFT, NON-TENDER WITH PALPATION. IVF INFUSING WNL. URINAL EMPTIED. CALL LIGHT IN REACH. NPO.
--- NOTE | 2021-02-09 06:26 | NUR ---
pt RESTING IN BED SLEEPING, AWAKENS TO VOICE. VSS. URINAL EMPTIED. pt UPDATED ON SCOPE SCHEDULED FOR 1144. REQUESTING TO SLEEP. CALL LIGHT IN REACH.
--- NOTE | 2021-02-09 07:25 | NUR ---
PHONE CALL TO , NOTIFIED OF PLATELET COUNT. NOTIFIED THAT PER LAB PLATELTS WILL BE HERE AROUND 1100. TELEPHONE ORDER TO TRANSFUSE PLATELETS WHEN THEY ARRIVE ON MEDICAL FLOOR.
--- NOTE | 2021-02-09 07:52 | NUR ---
IN TO CHECK ON PT SLEEPING WITH EYES CLOCSED ON THE LEFT SIDE.. PT WAKENS EASILY TO VOICE. PAT NOW ALERT AND ORIENTED X 3. DENIES PAIN AND NAUSEA AT THS TIME. PT LAUGHING ANF KOING WITH THIS NURSE. NO OTHER CONCERNS OR REQUESTS AT THIS TIME. BED RAILS UP X 3. CALL LIGHT LIGHT IN REACH.
--- NOTE | 2021-02-09 09:41 | NUR ---
ALL AM PO MEDS HELD, PT NPO. VERIFIED PROPRANOLOL ADMINISTRATION PER DR COHEN, DR FU OK'D TO HOLD.
--- NOTE | 2021-02-09 09:54 | NUR ---
IN TO CHECK ON PT. PT LAYING IN BED IN SUPINE POSITION WITH HOB ELEVATED 14 DEGREES. DENIES PAIN AND NAUSEA. PT DOING IS INDEPENDENTLY X 5 AT 2500MLS. AM ASSESSMENT COMPLETED. PT PLEASNAT AND COOPERATIVE WITH STAFF. NO OTHER CONCERNS OR REQUESTS AT THIS TIME. CALL LIGHT IN REACH.
--- NOTE | 2021-02-09 10:00 | NUR ---
PT AWAKE IN BED, CALL LIGHT WITHIN REACH. NO FURTHER NEEDS AT THIS TIME
--- NOTE | 2021-02-09 11:23 | NUR ---
call made to Dr. Soler. notifeied provider 1 unit platlets have arrived. verbal ok given to infuse now.
--- NOTE | 2021-02-09 11:37 | NUR ---
PT RELAXING IN BED WATCHING TV.PT IS PLEASANT, IS SCHEDULED TO HAVE SCOPE TODAY-NPO AT THE PRESENT. PT MENTIONED HE IS TO ALSO HAVE PLATELETS TODAY WELL. PT THANKFUL FOR CARE DID NOT WANT CERTIFIED FIRST ASSISTANT TO VISIT TODAY. GAVE PT BLESSING, WILL FOLLOW
--- NOTE | 2021-02-09 11:55 | NUR ---
Platelets started on medical floor. Patient left unit to surgery department shorlty after starting platlets. VAUGHN Solorio came to get patient for surgery. Education completed with patient. Updated Osmin with platlet admin plan of care.
--- NOTE | 2021-02-09 12:58 | NUR ---
02/09/21 1258 Sheets,Leelee 1252 PT ARRIVED TO PACU ON 6L VIA MASK, PT NONAROUSABLE TO TACTILE STIMULI. RESP EVEN AND UNLABORED. VSS.
--- NOTE | 2021-02-09 13:47 | NUR ---
Patient back on medical floor from having a colonoscopy. Patient alert and oriented x4. Patient reports gas pain at this time. Patient's vital signs are stable, afebrile. Platelets continuing to infuse. of patient at bedside. Patient has no current needs at this time. Personal supplies and call light within reach.
--- NOTE | 2021-02-09 15:01 | NUR ---
IN TO CHECK ON PT, AT E BEDSIDE. PT ORDER LUCH WITH KITCHEN STAFF. VS OBTAINED. PT ALERTA ND OREITNED X 4. DENIES PAIN AND NAUSEA TA THIS ITME. NO OTHER CONCOERNS OR REQUEST AT THIS TIME. CALL LIGHT IN REACH.
--- NOTE | 2021-02-09 16:12 | NUR ---
in to check on pt. pt sitting up with hob 47 detgrees eating lunch. no c/o pain or discomfort. pleasant. VSS. at bedside. no other concerns or request at this time.call light in reach.
--- NOTE | 2021-02-09 17:26 | NUR ---
IN TO CHECK ON PT. MEDICATION DUE. PT DENIES PAIN, REPORTS BLOATING LIKLY R/T COLONOSCOPY PROCEDURE THIS AM. PT RESTING. TOLERATING REGULAR DIET WELL. NO OTHER CONCERNS OR REQUESTS AT THIS TIME. CALL LIGHT IN REACH.
--- NOTE | 2021-02-09 17:42 | NUR ---
PT HAD COLONOSCOPY THIS AM. ALERT AND OREITNED PER BASELINE, MAKES NEEDS KNOWN. PT HAD 1 UNIT PLATELETS AND TOELRATED WELL. TOLERATING REGULAR DIET WELL. C/O OF BLOATING POST COLONOSCOPY. AM PO MEDICATION HELD PER NPO STATUS, PROPRANOLOL HELD PER DR COHEN VERBAL OK. VOIDING WELL. VSS.
--- NOTE | 2021-02-09 19:31 | NUR ---
REPORT RECEIVED FROM DAY SHIFT RN. PT LYING IN BED ALERT AND ORIENTED. DENIES NEEDS AT THIS TIME. WHITE BOARD UPDATED. CALL LIGHT IN REACH.
--- NOTE | 2021-02-09 21:30 | NUR ---
EVENING ASSESSMENT COMPLETE. SCHEDULED MEDS ADMINISTERED PER EMAR. PT DENIES PAIN OR NAUSEA. PT DOES REPORT ABD BLOATING AND GAS SINCE COLONOSCOPY. BOWEL TONES HYPERACTIVE. ABD SOFT. EMS PIV IN RIGHT HAND DC'D PER PT REQUEST. TIP IN TACT. SCD'S IN PLACE. PT DENIES QUESTIONS OR CONCERS. CALL LIGHT IN REACH.
--- NOTE | 2021-02-10 00:46 | NUR ---
PT RESTING IN BED WITH EYES CLOSED. RESPIRATIONS EVEN. CALL LIGHT IN REACH.
--- NOTE | 2021-02-10 02:09 | NUR ---
URINAL EMPTIED OF 400 ML YELLOW URINE. PT REPORTS HE IS RESTING WELL, DENIES NEEDS.
--- NOTE | 2021-02-10 04:09 | NUR ---
PT RESTING IN BED WITH EYES CLOSED. RESPIRATIONS EVEN. IVF INFUSING. SCD'D IN PLACE.
--- NOTE | 2021-02-10 05:40 | NUR ---
SCHEDULED MEDS ADMINISTERED. VS AND I&O OBTAINED, WNL. PT DENIES PAIN OR NAUSEA. UP TO BR TO VOID AND HAVE LIQ BM. DIME SIZE AMOUNT BRIGHT RED BLOOD NOTED IN TOILET AFTER VOID. PT DENIES PAIN OR DIFFICULTY URINATING. WILL PASS ALONG TO DAY SHIFT RN. LAB IN FOR MORNING DRAW. NO FURTHER NEEDS.
--- NOTE | 2021-02-10 07:00 | NUR ---
CRITICAL VALUE RECEIVED FROM LAB. DR. COHEN NOTIFIED. NO NEW ORDERS RECEIVED.
--- NOTE | 2021-02-10 08:01 | NUR ---
Shift report received from VAUGHN Farr, pt resting in bed safely w/ call light in reach. Pt requested Protonix be given before breakfast, medication given pt denies any other needs at this time.
--- NOTE | 2021-02-10 08:54 | OR ---
[facility] [address], [place] [address] Signed DATE OF OPERATION: 02/09/2021 SURGEON: Ramos Nathan MD PREOPERATIVE DIAGNOSES: 1. Recent admission for sepsis, CT scan findings of "colitis". 2. History of left colectomy for stage IV colon cancer with concurrent subsequent right extended trisegmentectomy.... 2013 3. Portal hypertension with esophageal varices. POSTOPERATIVE DIAGNOSES: 1. No evidence of obvious colitis; segmental areas of edema of colonic wall. 2. Extensive diverticulosis. PROCEDURE: Total colonoscopy to cecum with biopsy of right colon and rectum. ANESTHESIA: Intravenous sedation, propofol, infusional technique, Adilson Verma CRNA. PREOPERATIVE TREATMENT: A 2 units platelets (thrombocytopenia, platelet count 32,000). INDICATIONS: This 80-year-old white man, who is well known to me from the past was admitted to the hospital on 02/05/[address] Hernandez, and subsequently was seen by Dr. Kirk. He had the onset of severe fever and chills, findings suggestive of sepsis. CT scan was performed upon his presentation into the emergency room, where he was found to have areas considered possible colitis with thickened colonic sanchez. He also had thickening of the duodenum. The patient does have underlying portal hypertension and splenomegaly, which was rather significant with chronic thrombocytopenia. His usual platelet count is 76,000, though since admission was between 32,000 and 36,000. He has had no overt clinical bleeding. He was treated with broad-spectrum antibiotics. Consideration was made for colonoscopy to better characterize the "colitis" that was described on CT scan. Under the circumstances of his thrombocytopenia, platelet transfusion has been initiated prior to the procedure, and he has undergone a bowel prep. He understands as does his , the risks of bleeding, infection, and perforation related to colonoscopy. Additionally, mindful of his significant splenomegaly, the unlikely but known complication of splenic trauma is also acknowledged by all parties. Electronically Signed By: RAMOS NATHAN MD 02/10/21 0854 PATIENT NAME: TOPHER SULLIVAN OPERATIVE REPORT DATE OF : 42 REPORT #: [id number] PHYSICIAN: RAMOS NATHAN MD PCP: ROBERTO CARLOS MONREAL MD REPORT IS CONFIDENTIAL AND NOT TO BE RELEASED WITHOUT AUTHORIZATION [facility] [address], [place] [address] Signed FINDINGS: The prep was adequate overall. Complete colonoscopy was undertaken of the cecum. There was surgical absence of the sigmoid and left colon. The anastomosis was widely patent. There was no specific area of actual colitis. There were few areas of the remaining left sided colon that had edema. Biopsies were taken of the rectum as well as the right colon. He had extensive diverticular change in the left colon and transverse colon, but no evidence of colitis or cancer. DESCRIPTION OF PROCEDURE: The patient was brought to the endoscopy suite and placed in lateral decubitus position given intravenous sedation by the cloth mercerizer operator with propofol infusional technique. Platelet had already been infusing at least half of them had been infused by the time of the procedure. After satisfactory intravenous sedation, digital rectal examination was performed, which was reasonably normal. An Olympus video colonoscope was passed into the rectum. The anastomosis was promptly encountered. Manipulation into the afferent limb undertaken. Numerous diverticula were seen proximally. The scope was ultimately advanced to the cecum. Irrigation was undertaken as needed. Right-sided colonic biopsy was undertaken without seeing actual colitis or mucosal compromise in any way. The scope was carefully withdrawn and there were few areas that had edematous changes of the mucosa, but none with actual inflammatory change as might be typical. Further withdrawal out for passage through the diverticula laid in left colon and naye-sigmoid and biopsies was taken of the rectum. Retroflexed view did confirm internal hemorrhoidal change. The scope was straightened, withdrawn, and removed. The patient was taken to the recovery room in good condition. CONCLUDING DIAGNOSES: No specific findings of colitis; certainly no evidence of ulcerative colitis. The edema of his bowel wall may be related to a septic problem to be sure, however, consideration might be made that the edema is related to underlying portal hypertension. He is not known to have a portal vein thrombosis or anything else and the acuity of his onset of symptoms is uncertain. Certainly in those patients with portal hypertension, translocation of a normal enteric bacteria can contribute to this. Additionally, it is noted that his C difficile assessment was negative and blood cultures were positive for gram-positive cocci identified as Streptococcus agalactiae (group B). PLAN: He will return to the regular nursing hawkins, where a regular diet will be initiated. It is notable that stool studies have been found negative for Shiga toxin type 1 and 2. Strep agalactiae sensitivity show no evidence of resistance to antibiotics plated including penicillin, Levaquin, linezolid, vancomycin, tetracycline, erythromycin, and ampicillin. On that basis, an oral agent may be adequate to cover for the presumed colon related sepsis. Electronically Signed By: RAMOS NATHAN MD 02/10/21 0854 PATIENT NAME: TOPHER SULLIVAN OPERATIVE REPORT DATE OF : 42 REPORT #: [id number] PHYSICIAN: RAMOS NATHAN MD PCP: ROBERTO CARLOS MONREAL MD REPORT IS CONFIDENTIAL AND NOT TO BE RELEASED WITHOUT AUTHORIZATION [facility] [address] [place], [place] [address] Signed MD SÁNCHEZ Joseph/ANGELINAL /[id number] cc: MD Farhana Bertrand MD Russell Barr Harrison, MD Copies: MARTHA HERNANDEZ CYNTHIA MD HARRISON, RUSSELL BARR MD ~ Electronically Signed By: RAMOS NATHAN MD 02/10/21 0854 PATIENT NAME: TOPHER SULLIVAN CONNIE OPERATIVE REPORT DATE OF : 42 REPORT #: [id number] PHYSICIAN: RAMOS NATHAN MD PCP: ROBERTO CARLOS MONREAL MD REPORT IS CONFIDENTIAL AND NOT TO BE RELEASED WITHOUT AUTHORIZATION
--- NOTE | 2021-02-10 10:00 | NUR ---
PT SITTING UP IN BED W/ CALL LIGHT IN REACH EATING BREAKFAST, MORNING ASSESMENT COMPLETE, SCHEDULED MEDS GIVEN, AND IV FLUIDS INFUSING PER PROVIDER ORDER, PT DENIES ANY NEEDS AT THIS TIME.
--- NOTE | 2021-02-10 10:12 | NUR ---
Patient has no requests at this time other than taking out his tray.
--- NOTE | 2021-02-10 12:00 | NUR ---
Pt sitting up in bed safely w/ call light in reach, eating lunch, no needs at this time, eager to discharge home, at bedside
[2021-02-10] MEDS ORDERED: LEVOFLOXACIN750 MG PO (13:16)
[2021-02-10] MEDS ORDERED: METRONIDAZOLE250 MG PO (13:17)
--- NOTE | 2021-02-10 13:44 | NUR ---
PT ALERT, ORIENTED AND SUPPORTED BY HIS DAVE AT . PT REALLY HOPING TO DC TODAY. PT APPEARS TO BE DOING WELL, AGREES. PT PLEASE WITH HIS CARE AND ALL QUESTONS ASKED ANSWERED. NO VISIT FROM TODAY. GAVE BLESSING, WILL CONTINUE TO FOLLOW NEEDED
--- NOTE | 2021-02-10 14:30 | NUR ---
PT SITTING UP ON SIDE OF BED, DISCHARGE INSTRUCTIONS GIVEN TO PT AND , IV REMOVED, AND VSS ON RA. PT TAKEN TO FRONT LOBBY VIA W/C BY ROSARIO SPENCER
--- NOTE | 2021-02-10 15:06 | NUR ---
CHECKING ON PT-HE IS GETTING DRESSED-RREADY FOR DC. GAVE BLESSING
== END 2021-02-10 14:35 | disposition home or self-care (01) | DRG 872 ==
LOC: ED 16:21 → MS 21:18 → CCU 21:18 → MS 02-06 15:15
PROVIDERS: Surgery; ADMIT Student in an Organized Health Care Education/Training Program; ATTEND Student in an Organized Health Care Education/Training Program
PROC: 0DBF8ZX Excision of Right Large Intestine, Via Natural or Artificial Opening Endoscopic, Diagnostic (ICD-10-PCS; 2021-02-09)
PROC: 0DBP8ZX Excision of Rectum, Via Natural or Artificial Opening Endoscopic, Diagnostic (ICD-10-PCS; 2021-02-09)
PROC: 30233R1 Transfusion of Nonautologous Platelets into Peripheral Vein, Percutaneous Approach (ICD-10-PCS; principal; 2021-02-09 11:45)
DX: A41.59 Other Gram-negative sepsis (principal); K76.6 Portal hypertension; I85.00 Esophageal varices without bleeding; N17.9 Acute kidney failure, unspecified; K52.9 Noninfective gastroenteritis and colitis, unspecified; I10 Essential (primary) hypertension; D63.8 Anemia in other chronic diseases classified elsewhere; D69.59 Other secondary thrombocytopenia; G47.33 Obstructive sleep apnea (adult) (pediatric); Z20.822 Contact with and (suspected) exposure to COVID-19; I95.89 Other hypotension; K21.9 Gastro-esophageal reflux disease without esophagitis; K29.80 Duodenitis without bleeding; R65.20 Severe sepsis without septic shock; K57.30 Diverticulosis of large intestine without perforation or abscess without bleeding; E80.6 Other disorders of bilirubin metabolism; K64.8 Other hemorrhoids; K29.70 Gastritis, unspecified, without bleeding; R79.89 Other specified abnormal findings of blood chemistry; R31.9 Hematuria, unspecified; R16.1 Splenomegaly, not elsewhere classified; Z85.46 Personal history of malignant neoplasm of prostate; Z85.038 Personal history of other malignant neoplasm of large intestine; Z92.21 Personal history of antineoplastic chemotherapy; Z95.828 Presence of other vascular implants and grafts; Z98.890 Other specified postprocedural states; Z79.899 Other long term (current) drug therapy; Z87.891 Personal history of nicotine dependence; Z85.05 Personal history of malignant neoplasm of liver; Z90.49 Acquired absence of other specified parts of digestive tract; Z86.16 Personal history of COVID-19
CPT/HCPCS: 36430; 71045; 74177; 80048; 80053; 80500; 81001; 83605; 83735; 85007; 85025; 85651; 86900; 87040; 87070; 87077; 87186; 87205; 87493; 88305; 93005; 93010; 99285-25; A9270; C9803; J0696; J2001; J2405; J2704; J3475; J7040; J7121; P9035; Q9967; U0003

== ENCOUNTER 2022-11-15 08:59 | Day surgery (SDC) | payer MEDICARE, OTHER ==
[~2022-11-15] VITALS: Ht 185.4 cm; Wt 83.0 kg
[~2022-11-15 08:59] MED LIST changes: +LEVOFLOXACIN750 MG PO; +OMEPRAZOLE40 MG PO
[2022-11-15 09:20] VITALS: BP 125/75
[2022-11-15 09:54] LABS: BASOPHILS 0.4 % (0-2); HEMOGLOBIN 10.8 g/dL (12.0-18.0); MCHC 33.4 g/dl (30-36)
[2022-11-15 09:56] LABS: EOSINOPHILS 2.8 % (0-6); HEMATOCRIT 32.2 % (35.0-50.0); LYMPHOCYTES 17.1 % (24-44); MCH 30.9 (27-36); MCV 92.4 fl (81-99); MONOCYTES 9.8 % (0-12); NEUTROPHILS 69.9 % (39-80); PLATELET COUNT 52 K/uL (140-440); RBC 3.49 M/ul (4.3-5.7); RDW 16.1 (10.5-15.0)
[2022-11-15 10:02] LABS: ALBUMIN 3.2 g/dL (3.4-5.0); ALBUMIN/GLOBULIN RATIO 1.07 (1.1-2.4); ANION GAP 10.9 (7-21); BILIRUBIN, TOTAL 2.4 ng/dL (0.2-1.0); BUN/CREATININE RATIO 16.49 (6.0-28.6); CALCIUM 8.7 mg/dL (8.5-10.1); CREATININE, SERUM 0.97 mg/dL (0.70-1.30); POTASSIUM 3.9 mmol/L (3.5-5.1); PROTEIN, TOTAL 6.2 g/dL (6.4-8.2)
--- NOTE | 2022-11-15 10:52 | NUR ---
pt and have been updated on wait. running errand then will return.
--- NOTE | 2022-11-15 12:12 | NUR ---
dosing with eyes closed even resp. at bs.
--- NOTE | 2022-11-15 14:22 | NUR ---
11/15/22 1422 Shila Nowak 1357- PT ARRIVES TO UNIT VIA STRETCHER FROM OR. PT'S POSITIONED ON LFT SIDE. ORAL AIRWAY IN PLACE, 10L IN PLACE VIA MASK, O2 >90% AT THIS TIME. PT NONRESPONSIVE TO TACTILE STIMULI AT THIS TIME. REPORT RECEIVED FROM RAMOS LEBRON AT BEDSIDE. PT RESPIRATIONS EVEN AND UNLABORED, NO SIGNS OF DISTRESS. 1405- PT TACTILE STIMULI, NO RESPONSE. PT RESPIRATIONS EVEN AND UNLABORED, NO SIGNS OF DISTRESS.
[2022-11-15 14:42] LABS: HEMOGLOBIN 9.5 g/dL (12.0-18.0); MCH 30.8 (27-36); RBC 3.08 M/ul (4.3-5.7)
[2022-11-15 14:44] LABS: HEMATOCRIT 28.3 % (35.0-50.0); MCHC 33.4 g/dl (30-36); MCV 92.1 fl (81-99)
[2022-11-15 15:02] LABS: PLATELET COUNT 44 K/uL (140-440)
[2022-11-15 15:10] VITALS: BP 102/55
[2022-11-15 15:11] LABS: BANDS, MANUAL DIFF 1; BASOPHILS, MANUAL DIFF 2; EOSINOPHILS, MANUAL DIFF 1; LYMPHOCYTES, MANUAL DIFF 25; MONOCYTES, MANUAL DIFF 7; NEUTROPHILS, MANUAL DIFF 64
--- NOTE | 2022-11-15 15:14 | NUR ---
DR. NATHAN NOTIFIED OF PATIENT'S CRITICAL PLATELET VALUE OF 44.
--- NOTE | 2022-11-17 14:11 | OR ---
[facility] [address], [place] [address] Signed DATE OF OPERATION: 11/15/2022 SURGEON: Ramos Nathan MD PREOPERATIVE DIAGNOSES: 1. Longstanding portal hypertension with advanced esophageal varices. 2. Recent melena (clinically resolved). 3. Distant history of right trisegmentectomy for metastatic colon cancer greater than 10 years ago. 4. History of left colectomy for colon cancer, stage IV. POSTOPERATIVE DIAGNOSES: 1. Erosive scarring of distal esophageal varices, no longer actively bleeding. 2. Advanced grade 4 esophageal varices. 3. Gastric erosion with oozing. PROCEDURE: Esophagogastroduodenoscopy with application of hemoclip to gastric erosion. ANESTHESIA: Intravenous sedation, propofol infusion, Ramos Kennedy CRNA. INDICATION: This 82-year-old white man is a patient of Dr. Roberto Carlos Gil and well known to me from the past. He underwent left colectomy by me more than 10 years ago and subsequent right extended trisegmentectomy of large hepatic metastatic lesion. He did ultimately developed esophageal varices. Over the past two years, he has had at least one episode of significant anemia, found to have peptic ulcer of the stomach and duodenal area, which was medically treated. He has never had known gastric or esophageal variceal bleeding. Over a week ago, he was noted to have dark stool, but no hematemesis. His hemoglobin drifted from 11.9 down to 10 (hematocrit 30). He is chronically thrombocytopenic. His platelet count currently 51,000, hematocrit 28.1. While he does not have any melena or signs of ongoing bleeding, upper endoscopy was offered to assess for the source of his bleeding whether peptic as in the past or possibly esophageal variceal bleeding. The risk of bleeding, infection, and perforation related to upper endoscopy was reviewed with him. He understands and wished to proceed. Notably, he was off his PPI medication at the time of his bleeding. He does take Electronically Signed By: RAMOS NATHAN MD 11/17/22 1411 PATIENT NAME: TOPHER SULLIVAN OPERATIVE REPORT DATE OF : 42 REPORT #: [id number] PHYSICIAN: RAMOS NATHAN MD PCP: ROBERTO CARLOS GIL MD REPORT IS CONFIDENTIAL AND NOT TO BE RELEASED WITHOUT AUTHORIZATION [facility] [address], [place] [address] Signed propranolol on a routine basis. FINDINGS: There is no sign of bleeding esophageal varices. There is questionably development of possible gastric varices, though this is uncertain. There is an erosive area of the mid stomach that had persistent oozing which was secured with hemoclip. There was no sign of clot or large amount of blood within the GI tract. As regard to the varices, they are advanced and very serpiginous. In the distal portion, was an erosive serpiginous linear healing ulcer, likely the source of bleeding in the recent past. DESCRIPTION OF PROCEDURE: The patient was brought to the endoscopy suite, given topical lidocaine hypopharyngeal anesthesia and ultimately intravenous sedation with propofol infusion by the integration project manager given his advanced ASA level. A bite block was placed. An Olympus video upper endoscope was passed in the hypopharynx. The vocal cords appeared normal. There was no sign of rocio-arytenoid varices. The scope was advanced to the esophagus without problem. Approximately 2/3rd down the esophagus, esophageal varices were encountered. There was no sign of active bleeding. The scope was advanced down the esophagus into the stomach. There was no evidence of clot or active bleeding in the stomach. On 1st glance, rugal folds appeared normal. Antrum was normal. Scope was passed through the pylorus and into the duodenum, which was normal. Scope was withdrawn and retroflexed view undertaken showing findings suggestive though not diagnostic of proximal gastric varices. There was no sign of bleeding there. Additional evaluation showed an erosive area in mid stomach. Given his ongoing thrombocytopenia and the persistent bleeding that was noted from it, this was secured with a hemoclip with good effect. The scope was then withdrawn to the distal esophagus. Careful inspection of esophageal varices in the distal portion showed a linear serpiginous area likely patient access representative of healing erosion. Careful withdrawal of scope through the esophageal variceal area showed no sign of active bleeding, clot or stigmata of immediate recent bleeding. Proximal esophagus was free of varices. The scope was removed. He was taken to the recovery room in good condition. CONCLUDING DIAGNOSIS: I suspect his bleeding was probably variceal related to an erosive change while off PPI medication. The lesion of the stomach is probably situational today, but was secured with a hemoclip given his ongoing thrombocytopenia. The patient is advised to continue with Prilosec and on short-term we will prescribe Carafate 1 g p.o. t.i.d. for two weeks and check CBC today. If he has any problems, he will let me know. Electronically Signed By: RAMOS NATHAN MD 11/17/22 1411 PATIENT NAME: TOPHER SULLIVAN OPERATIVE REPORT DATE OF : 42 REPORT #: [id number] PHYSICIAN: RAMOS NATHAN MD PCP: ROBERTO CARLOS GIL MD REPORT IS CONFIDENTIAL AND NOT TO BE RELEASED WITHOUT AUTHORIZATION [facility] [address] [place], [place] [address] Signed MD SÁNCHEZ Joseph/SHERI /[id number] cc: Dr. Roberto Carlos Gil MD Copies: ROBERTO CARLOS GIL MD ~ Electronically Signed By: RAMOS NATHAN MD 11/17/22 1411 PATIENT NAME: LAURIETOPHER OPERATIVE REPORT DATE OF : 41 REPORT #: [id number] PHYSICIAN: RAMOS NATHAN MD PCP: ROBERTO CARLOS GIL MD REPORT IS CONFIDENTIAL AND NOT TO BE RELEASED WITHOUT AUTHORIZATION
== END 2022-11-15 15:00 | disposition home or self-care (01) ==
LOC: OPS 08:59 → DS 09:00 → OPS 10:15 → DS 10:30 → OPS 15:00
PROVIDERS: ATTEND Surgery
PROC: 0W3P8ZZ Control Bleeding in Gastrointestinal Tract, Via Natural or Artificial Opening Endoscopic (ICD-10-PCS; principal; 2022-11-15 10:15)
DX: K25.4 Chronic or unspecified gastric ulcer with hemorrhage (principal); I85.00 Esophageal varices without bleeding; K43.2 Incisional hernia without obstruction or gangrene; C78.7 Secondary malignant neoplasm of liver and intrahepatic bile duct; D69.6 Thrombocytopenia, unspecified
CPT/HCPCS: 00731; 36415; 80053; 85025; 85060; J2704; J7121

== ENCOUNTER 2024-02-23 06:19 | Emergency (ER) | payer MEDICARE, OTHER ==
[~2024-02-23] VITALS: Ht 185.4 cm; Wt 80.0 kg
[~2024-02-23 06:19] MED LIST changes: +SUCRALFATE1 GM PO
[2024-02-23] MEDS ORDERED: PANTOPRAZOLE SODIUM 40 MG/10 ML VIAL IV ONE (06:45)
[2024-02-23 06:52] LABS: BASOPHILS 0.3 % (0-2); HEMATOCRIT 34.4 % (35.0-50.0); HEMOGLOBIN 11.9 g/dL (12.0-18.0); LYMPHOCYTES 13.2 % (24-44); MCH 32.4 (27-36); MCHC 34.7 g/dl (30-36); MCV 93.2 fl (81-99); MONOCYTES 13.2 % (0-12); NEUTROPHILS 71.3 % (39-80); PLATELET COUNT 50 K/uL (140-440); RBC 3.69 M/ul (4.3-5.7); RDW 16.1 (10.5-15.0)
[2024-02-23 07:07] LABS: ALBUMIN 2.9 g/dL (3.4-5.0); ALBUMIN/GLOBULIN RATIO 0.83 (1.1-2.4); ANION GAP 10.9 (7-21); BILIRUBIN, TOTAL 2.2 ng/dL (0.2-1.0); BUN/CREATININE RATIO 20.65 (6.0-28.6); CALCIUM 8.5 mg/dL (8.5-10.1); CREATININE, SERUM 0.92 mg/dL (0.70-1.30); POTASSIUM 3.9 mmol/L (3.5-5.1); PROTEIN, TOTAL 6.4 g/dL (6.4-8.2)
[2024-02-23 07:20] LABS: INR 1.42 (0.80-1.30); PROTIME 16.5 Sec (11.2-14.2)
[2024-02-23 07:25] LABS: ABO O; ANTIBODY SCREEN NEGATIVE; RH POSITIVE
[2024-02-23 09:21] LABS: BASOPHILS 0.5 % (0-2); BASOPHILS, ABSOLUTE 0 %; EOSINOPHILS 1.5 % (0-6); EOSINOPHILS, ABSOLUTE 0; HEMATOCRIT 32.5 % (35.0-50.0); HEMOGLOBIN 11.2 g/dL (12.0-18.0); LYMPHOCYTES 15.3 % (24-44); LYMPHOCYTES, ABSOLUTE 0.5; MCH 32.4 (27-36); MCHC 34.6 g/dl (30-36); MCV 93.9 fl (81-99); MONOCYTES 14.8 % (0-12); MONOCYTES, ABSOLUTE 0.5; NEUTROPHILS 67.9 % (39-80); NEUTROPHILS, ABSOLUTE 2.1; RBC 3.46 M/ul (4.3-5.7); RDW 15.9 (10.5-15.0)
[2024-02-23 09:37] LABS: PLATELET COUNT 42 K/uL (140-440)
[2024-02-23 11:17] LABS: BILIRUBIN, URINE NEGATIVE (negative); BLOOD/HGB, URINE NEGATIVE (Negative); KETONE, URINE NEGATIVE (Negative); LEUK ESTERASE, URINE NEGATIVE (negative); NITRITE, URINE NEGATIVE (negative); PH, URINE 7.5 (5-7)
[2024-02-23 12:00] VITALS: BP 117/78
--- NOTE | 2024-02-25 12:15 | EKG ---
[facility] [address] [facility] [place] [address] Signed Sinus rhythm with 1st degree AV block with blocked premature atrial complexes Right bundle branch block Abnormal ECG When compared with ECG of 05-FEB-2021 16:33, premature atrial complexes are now present PA interval has increased Vent. rate has decreased BY 45 BPM QRS duration has increased Confirmed by Scout Banda MD ([id number]) on 02/25/2024 12:15:15 PM Electronically Signed By: SCOUT BANDA DO 02/25/24 1215 PATIENT NAME: LAURIETOPHER Electrocardiogram DATE OF : 42 PHYSICIAN: SCOUT BANDA DO REPORT #: [id number] REPORT IS CONFIDENTIAL AND NOT TO BE RELEASED WITHOUT AUTHORIZATION
== END 2024-02-23 12:05 | disposition short-term general hospital (02) ==
LOC: ED 06:19
PROVIDERS: Emergency Medicine; Family Medicine
DX: K92.2 Gastrointestinal hemorrhage, unspecified (principal); I10 Essential (primary) hypertension; Z87.891 Personal history of nicotine dependence; Z79.899 Other long term (current) drug therapy
CPT/HCPCS: 36415; 74177; 80053; 81003; 85025; 85060; 85610; 86850; 86900; 86901; 93005; 93010; 96374; 99285-25; J2470; Q9967

== ENCOUNTER 2024-05-11 07:09 | Emergency (ER) | payer MEDICARE, OTHER ==
[~2024-05-11] VITALS: Ht 185.4 cm; Wt 79.4 kg
--- OUTSIDE RECORDS SUMMARY | ~2024-05-11 | XMS | Continuity of Care Document ---
Demographics + + + | Address | [address] | | | [place] [address] | + + + | Preferred Language | Unknown | + + + | Marital Status | Unknown | + + + | Church Affiliation | Unknown | + + + | Race | White | + + + | Ethnic Group | Unknown | + + + Author + + + | Author | [facility] | + + + | Organization | [facility] | + + + | Address | [address] | | | [place] [address] | + + + | Phone | | + + + Care Team Providers + + + + | Care Heavy Truck Technician Name | Role | Phone | + + + + Unavailable | Unavailable | + + + + Allergies No information. Encounters No information. Functional Status No information. Immunizations No information. Medications No information. 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 Results/Labs No information. Social History +--------+ + + | date | description | facility | +--------+ + + Vital Signs No information."
[2024-05-11] MEDS ORDERED: FUROSEMIDE40 MG PO (07:25)
[2024-05-11] MEDS ORDERED: SPIRONOLACTONE100 MG NG (07:25)
[2024-05-11] MEDS ORDERED: ondansetron HCL 4 MG/2 ML VIAL IV ONE (07:45)
[2024-05-11] MEDS ORDERED: OCTREOTIDE ACETATE 100 MCG/ML VIAL IV ONE (07:45)
[2024-05-11] MEDS ORDERED: OCTREOTIDE ACETATE 500 MCG in DEXTROSE 5% 250 ML IV SCH (07:45)
[2024-05-11] MEDS ORDERED: PANTOPRAZOLE SODIUM 40 MG/10 ML VIAL IV ONE (07:45)
[2024-05-11] MEDS ORDERED: SODIUM CHLORIDE 0.9% 500 ML IV PRN ×2 (08:15→09:00)
[2024-05-11 08:16] LABS: BASOPHILS 0.4 % (0-2); EOSINOPHILS 4.3 % (0-6); HEMATOCRIT 30.6 % (35.0-50.0); HEMOGLOBIN 10.7 g/dL (12.0-18.0); LYMPHOCYTES 6.3 % (24-44); MCH 31.8 (27-36); MCV 91.1 fl (81-99); MONOCYTES 6.2 % (0-12); NEUTROPHILS 82.8 % (39-80); PLATELET COUNT 89 K/uL (140-440); RBC 3.36 M/ul (4.3-5.7); RDW 15.5 (10.5-15.0)
[2024-05-11 08:26] LABS: INR 1.35 (0.80-1.30); PROTIME 16.6 Sec (11.2-14.2)
[2024-05-11 08:30] LABS: ALBUMIN 2.5 g/dL (3.4-5.0); ALBUMIN/GLOBULIN RATIO 0.83 (1.1-2.4); ANION GAP 11.3 (7-21); BILIRUBIN, TOTAL 1.9 mg/dL (0.2-1.0); CALCIUM 8.6 mg/dL (8.5-10.1); CREATININE, SERUM 1.03 mg/dL (0.70-1.30); POTASSIUM 5.3 mmol/L (3.5-5.1); PROTEIN, TOTAL 5.5 g/dL (6.4-8.2)
[2024-05-11 08:49] LABS: ABO O; RH POSITIVE
[2024-05-11 08:50] LABS: ANTIBODY SCREEN NEGATIVE
[2024-05-11 09:11] LABS: IS CROSSMATCH COMPATIBLE
[2024-05-11] MEDS ORDERED: ASCORBIC ACID500 M3 PO (09:24)
[2024-05-11] MEDS ORDERED: SILDENAFIL20 MG PO (09:24)
[2024-05-11] MEDS ORDERED: K-TAB ER20 MEQ PO (09:25)
[2024-05-11] MEDS ORDERED: FERROUS SULFAT324 MG PO (09:25)
[2024-05-11 10:24] LABS: BASOPHILS 0.4 % (0-2); EOSINOPHILS 0.4 % (0-6); HEMATOCRIT 28.3 % (35.0-50.0); HEMOGLOBIN 9.9 g/dL (12.0-18.0); LYMPHOCYTES 9.8 % (24-44); MCH 31.7 (27-36); MCHC 34.9 g/dl (30-36); MONOCYTES 6.3 % (0-12); NEUTROPHILS 83.1 % (39-80); PLATELET COUNT 67 K/uL (140-440); RBC 3.12 M/ul (4.3-5.7); RDW 15.9 (10.5-15.0)
[2024-05-11] MEDS ORDERED: CEFTRIAXONE/SODIUM CHLORIDE 2 GM/100 ML PIGGYBACK IV ONE (12:00)
[2024-05-11 12:55] VITALS: BP 93/58
== END 2024-05-11 12:55 | disposition short-term general hospital (02) ==
LOC: ED 07:09
PROVIDERS: Emergency Medicine
DX: K92.0 Hematemesis (principal); K92.1 Melena; D64.9 Anemia, unspecified; K74.60 Unspecified cirrhosis of liver; I85.10 Secondary esophageal varices without bleeding; I10 Essential (primary) hypertension; Z87.891 Personal history of nicotine dependence; Z85.038 Personal history of other malignant neoplasm of large intestine; Z85.05 Personal history of malignant neoplasm of liver; Z88.4 Allergy status to anesthetic agent; Z79.899 Other long term (current) drug therapy
CPT/HCPCS: 36415; 80053; 85025; 85610; 85730; 86850; 86900; 86901; 86922; 96361; 96374; 96375; 99285-25; J0696; J2354-JA; J2405; J2470; J7040; J7060

== ENCOUNTER 2024-07-03 16:51 | Emergency (ER) | payer MEDICARE, OTHER ==
[~2024-07-03] VITALS: Ht 185.4 cm; Wt 79.6 kg
[~2024-07-03 16:51] MED LIST changes: +ASCORBIC ACID500 M3 PO; +FERROUS SULFAT324 MG PO; +FUROSEMIDE40 MG PO; +SILDENAFIL20 MG PO; +SPIRONOLACTONE100 MG NG
[2024-07-03] MEDS ORDERED: CARVEDILOL3.125 MG PO (20:12)
[2024-07-03] MEDS ORDERED: FUROSEMIDE20 MG PO (20:12)
[2024-07-03] MEDS ORDERED: PANTOPRAZOLE SO40 MG PO (20:12)
[2024-07-03 20:27] LABS: BASOPHILS 0.4 % (0-2); EOSINOPHILS 0.4 % (0-6); HEMATOCRIT 31.5 % (35.0-50.0); LYMPHOCYTES 8.7 % (24-44); MCH 29.1 (27-36); MCHC 34.9 g/dl (30-36); MCV 83.2 fl (81-99); MONOCYTES 16.9 % (0-12); NEUTROPHILS 73.6 % (39-80); PLATELET COUNT 52 K/uL (140-440); RBC 3.78 M/ul (4.3-5.7); RDW 18.8 (10.5-15.0)
[2024-07-03 20:49] LABS: ALBUMIN 3.1 g/dL (3.4-5.0); ALBUMIN/GLOBULIN RATIO 0.86 (1.1-2.4); ANION GAP 12.9 (7-21); BILIRUBIN, TOTAL 3.1 mg/dL (0.2-1.0); BUN/CREATININE RATIO 28.92 (6.0-28.6); CALCIUM 9.3 mg/dL (8.5-10.1); CREATININE, SERUM 1.21 mg/dL (0.70-1.30); MAGNESIUM 1.9 mg/dL (1.8-2.4); POTASSIUM 3.9 mmol/L (3.5-5.1); PROTEIN, TOTAL 6.7 g/dL (6.4-8.2)
[2024-07-03 21:34] LABS: BILIRUBIN, URINE NEGATIVE (negative); BLOOD/HGB, URINE NEGATIVE (Negative); KETONE, URINE NEGATIVE (Negative); LEUK ESTERASE, URINE NEGATIVE (negative); NITRITE, URINE NEGATIVE (negative)
[2024-07-03 22:00] LABS: AMPHETAMINES, URINE NEGATIVE (NEGATIVE); BARBITURATES, URINE NEGATIVE (NEGATIVE); BENZODIAZEPINE, URINE NEGATIVE (NEGATIVE); BUPRENORPHINE, URINE NEGATIVE (NEGATIVE); CANNABINOID, URINE NEGATIVE (NEGATIVE); COCAINE, URINE NEGATIVE (NEGATIVE); ECSTASY, URINE NEGATIVE (NEGATIVE); FENTANYL, URINE NEGATIVE (NEGATIVE); METHADONE, URINE NEGATIVE (NEGATIVE); OPIATES, URINE NEGATIVE (NEGATIVE); OXYCODONE, URINE NEGATIVE (NEGATIVE); PHENCYCLIDINE, URINE NEGATIVE (NEGATIVE)
[2024-07-03 22:02] VITALS: BP 103/63
--- NOTE | 2024-07-04 13:59 | EKG ---
[facility] [address] [facility] [place] [address] Signed Sinus rhythm with 1st degree AV block with premature supraventricular complexes Right bundle branch block Abnormal ECG When compared with ECG of 23-FEB-2024 09:07, No significant change was found Confirmed by Renae Mojica MD () on 07/04/2024 1:59:18 PM Electronically Signed By: RENAE MOJICA MD 07/04/24 1359 PATIENT NAME: TOPHER SULLIVAN Electrocardiogram DATE OF : 42 PHYSICIAN: RENAE MOJICA MD REPORT #: [id number] REPORT IS CONFIDENTIAL AND NOT TO BE RELEASED WITHOUT AUTHORIZATION
== END 2024-07-03 22:04 | disposition home or self-care (01) ==
LOC: ED 16:51
PROVIDERS: Internal Medicine
DX: E86.0 Dehydration (principal); I10 Essential (primary) hypertension; Z87.891 Personal history of nicotine dependence; Z88.8 Allergy status to other drugs, medicaments and biological substances; Z79.899 Other long term (current) drug therapy
CPT/HCPCS: 36415; 80053; 80307; 81003; 82140; 83735; 84443; 84484; 85025; 93005; 93010; 99285

== ENCOUNTER 2024-07-19 03:04 | Emergency (ER) | payer MEDICARE, OTHER ==
[~2024-07-19] VITALS: Ht 185.4 cm; Wt 74.7 kg
[~2024-07-19 03:04] MED LIST changes: +CARVEDILOL3.125 MG PO; +FUROSEMIDE20 MG PO; +PANTOPRAZOLE SO40 MG PO
--- OUTSIDE RECORDS SUMMARY | 2024-07-19 03:12 | XMS ---
PreManage Notification: TOPHER SULLIVAN Security Checker Loader Events No recent Security Events currently on file CRITERIA MET - [facility] - 2 Visits in 30 Days CARE PROVIDERS There are no care providers on record at this time. Javan has no Care Guidelines for this patient. Dolly VISIT COUNT (12 MO.) [address] [facility] [place]. TOTAL 4 NOTE: Visits indicate total known visits. ED/UCC VISIT TRACKING (12 MO.) 07/19/2024 03:[address] [facility] [place] TYPE: Emergency COMPLAINT: - BLOOD IN STOOL 07/03/2024 16:52 [facility] TYPE: Emergency COMPLAINT: - DIZZINESS DIAGNOSES: - Allergy status to other drugs, medicaments and biological substances - Dehydration - Disorientation, unspecified - Essential (primary) hypertension - Other meterman (current) drug therapy - Personal history of nicotine dependence 05/11/2024 07:09 [facility] [place] TYPE: Emergency COMPLAINT: - VOMITING BLOOD DIAGNOSES: - Allergy status to anesthetic agent - Anemia, unspecified - Essential (primary) hypertension - Hematemesis - Melena - Other meterman (current) drug therapy - Personal history of malignant neoplasm of liver - Personal history of nicotine dependence - Personal history of other malignant neoplasm of large intestine - 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 - Unspecified cirrhosis of liver 02/23/2024 06:20 [facility] [place] TYPE: Emergency COMPLAINT: - RECTAL BLEEDING DIAGNOSES: - Essential (primary) hypertension - Gastrointestinal hemorrhage, unspecified - Hemorrhage of anus and rectum - Other meterman (current) drug therapy - Personal history of nicotine dependence INPATIENT VISIT TRACKING (12 MO.) 05/11/2024 14:23 [facility] TYPE: Internal Medicine DIAGNOSES: - Acute posthemorrhagic anemia - Atrioventricular block, first degree - Atrioventricular block, second degree - Gastrointestinal hemorrhage, unspecified - Other cirrhosis of liver - Other pancytopenia - Unspecified cirrhosis of liver - GIB, esophageal varices 02/23/2024 16:35 [facility] TYPE: General Medicine COMPLAINT: - GIB DIAGNOSES: - Atrioventricular block, second degree - Gastrointestinal hemorrhage, unspecified - Portal vein thrombosis - Rheumatic mitral stenosis with insufficiency [email or web address]
[2024-07-19 03:34] LABS: BASOPHILS 0.8 % (0-2); EOSINOPHILS 1.8 % (0-6); HEMATOCRIT 31.1 % (35.0-50.0); HEMOGLOBIN 10.6 g/dL (12.0-18.0); LYMPHOCYTES 12.8 % (24-44); MCH 28.2 (27-36); MCHC 34.2 g/dl (30-36); MCV 82.3 fl (81-99); MONOCYTES 11.1 % (0-12); NEUTROPHILS 73.5 % (39-80); PLATELET COUNT 78 K/uL (140-440); RBC 3.77 M/ul (4.3-5.7); RDW 18.6 (10.5-15.0)
[2024-07-19 03:45] LABS: INR 1.33 (0.80-1.30); PROTIME 15.9 Sec (11.2-14.2)
[2024-07-19] MEDS ORDERED: TRANEXAMIC ACID IN NACL,ISO-OS 1,000 MG/100 ML PIGGYBACK IV ONE (03:45)
[2024-07-19 03:50] LABS: ALBUMIN 2.9 g/dL (3.4-5.0); ALBUMIN/GLOBULIN RATIO 0.88 (1.1-2.4); ANION GAP 13.1 (7-21); BUN/CREATININE RATIO 20.47 (6.0-28.6); CREATININE, SERUM 1.27 mg/dL (0.70-1.30); POTASSIUM 4.1 mmol/L (3.5-5.1); PROTEIN, TOTAL 6.2 g/dL (6.4-8.2)
[2024-07-19 04:10] LABS: ABO O; RH POSITIVE
[2024-07-19 04:11] LABS: ANTIBODY SCREEN NEGATIVE
[2024-07-19] MEDS ORDERED: ondansetron HCL 4 MG/2 ML VIAL IV ONE (04:15)
[2024-07-19 04:32] LABS: BASOPHILS 0.7 % (0-2); EOSINOPHILS 1.8 % (0-6); HEMATOCRIT 27.7 % (35.0-50.0); HEMOGLOBIN 9.6 g/dL (12.0-18.0); LYMPHOCYTES 10.2 % (24-44); MCH 28.2 (27-36); MCHC 34.5 g/dl (30-36); MCV 81.9 fl (81-99); NEUTROPHILS 76.3 % (39-80); PLATELET COUNT 61 K/uL (140-440); RBC 3.38 M/ul (4.3-5.7); RDW 18.2 (10.5-15.0)
[2024-07-19 05:32] LABS: BASOPHILS 0.7 % (0-2); EOSINOPHILS 1.6 % (0-6); HEMATOCRIT 27.9 % (35.0-50.0); HEMOGLOBIN 9.6 g/dL (12.0-18.0); LYMPHOCYTES 10.5 % (24-44); MCH 28.2 (27-36); MCHC 34.3 g/dl (30-36); MCV 82.3 fl (81-99); NEUTROPHILS 76.2 % (39-80); PLATELET COUNT 60 K/uL (140-440); RBC 3.39 M/ul (4.3-5.7); RDW 18.3 (10.5-15.0)
[2024-07-19 06:03] VITALS: BP 95/69
== END 2024-07-19 06:00 | disposition home or self-care (01) ==
LOC: ED 03:04
PROVIDERS: Family Medicine
DX: K62.5 Hemorrhage of anus and rectum (principal); R71.0 Precipitous drop in hematocrit; I10 Essential (primary) hypertension; Z87.891 Personal history of nicotine dependence; Z88.6 Allergy status to analgesic agent; Z79.899 Other long term (current) drug therapy
CPT/HCPCS: 36415; 80053; 83735; 85025; 85610; 86850; 86900; 86901; 96374; 96375; 99283-25; J2405

== ENCOUNTER 2024-07-21 11:27 | Emergency (ER) | payer MEDICARE, OTHER ==
[~2024-07-21] VITALS: Ht 185.4 cm; Wt 72.4 kg
--- OUTSIDE RECORDS SUMMARY | 2024-07-21 11:34 | XMS ---
PreManage Notification: TOPHER SULLIVAN Security Transfusion Nurse Events No recent Security Events currently on file CRITERIA MET - [facility] - 2 Visits in 30 Days CARE PROVIDERS There are no care providers on record at this time. Javan has no Care Guidelines for this patient. Dolly VISIT COUNT (12 [address] [facility] TOTAL 5 NOTE: Visits indicate total known visits. ED/C VISIT TRACKING (12 MO.) 07/21/2024 11:27 [facility] [place] TYPE: Emergency COMPLAINT: - DIZZINESS 07/19/2024 03:05 [facility] [place] TYPE: Emergency COMPLAINT: - BLOOD IN STOOL 07/03/2024 16:52 [facility] [place] TYPE: Emergency COMPLAINT: - DIZZINESS DIAGNOSES: - Allergy status to other drugs, medicaments and biological substances - Dehydration - Disorientation, unspecified - Essential (primary) hypertension - Other termite treater helper (current) drug therapy - Personal history of nicotine dependence 05/11/2024 07:09 [facility] [place] TYPE: Emergency COMPLAINT: - VOMITING BLOOD DIAGNOSES: - Allergy status to anesthetic agent - Anemia, unspecified - Essential (primary) hypertension - Hematemesis - Melena - Other termite treater helper (current) drug therapy - Personal history of malignant neoplasm of liver - Personal history of nicotine dependence - Personal history of other malignant neoplasm of large intestine - 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 - Unspecified cirrhosis of liver 02/23/2024 06:20 [facility] TYPE: Emergency COMPLAINT: - RECTAL BLEEDING DIAGNOSES: - Essential (primary) hypertension - Gastrointestinal hemorrhage, unspecified - Hemorrhage of anus and rectum - Other termite treater helper (current) drug therapy - Personal history of nicotine dependence INPATIENT VISIT TRACKING (12 MO.) 05/11/2024 14:23 [facility] Mellisa Morales TYPE: Internal Medicine DIAGNOSES: - Acute posthemorrhagic anemia - Atrioventricular block, first degree - Atrioventricular block, second degree - Gastrointestinal hemorrhage, unspecified - Other cirrhosis of liver - Other pancytopenia - Unspecified cirrhosis of liver - GIB, esophageal varices 02/23/2024 16:35 [facility] TYPE: General Medicine COMPLAINT: - GIB DIAGNOSES: - Atrioventricular block, second degree - Gastrointestinal hemorrhage, unspecified - Portal vein thrombosis - Rheumatic mitral stenosis with insufficiency [email or web address]
[2024-07-21 12:15] LABS: BASOPHILS 0.4 % (0-2); EOSINOPHILS 1.2 % (0-6); HEMATOCRIT 31.5 % (35.0-50.0); HEMOGLOBIN 10.8 g/dL (12.0-18.0); LYMPHOCYTES 8.9 % (24-44); MCH 28.6 (27-36); MCHC 34.4 g/dl (30-36); MCV 83.2 fl (81-99); MONOCYTES 12.8 % (0-12); NEUTROPHILS 76.7 % (39-80); PLATELET COUNT 86 K/uL (140-440); RBC 3.78 M/ul (4.3-5.7); RDW 18.6 (10.5-15.0)
[2024-07-21 12:19] LABS: INR 1.33 (0.80-1.30); PROTIME 15.9 Sec (11.2-14.2)
[2024-07-21] MEDS ORDERED: CONSTULOSE10 GM/15 M PO (12:23)
[2024-07-21 12:25] LABS: ALBUMIN 2.7 g/dL (3.4-5.0); ALBUMIN/GLOBULIN RATIO 0.73 (1.1-2.4); BILIRUBIN, TOTAL 2.3 mg/dL (0.2-1.0); BUN/CREATININE RATIO 19.56 (6.0-28.6); CALCIUM 8.9 mg/dL (8.5-10.1); CREATININE, SERUM 1.38 mg/dL (0.70-1.30); PROTEIN, TOTAL 6.4 g/dL (6.4-8.2)
[2024-07-21] MEDS ORDERED: SODIUM CHLORIDE 0.9% 500 ML IV PRN (13:15)
[2024-07-21] MEDS ORDERED: LACTULOSE 20 GM/30 ML CUP PO ONE (13:30)
[2024-07-21 13:48] LABS: BILIRUBIN, URINE NEGATIVE (negative); BLOOD/HGB, URINE NEGATIVE (Negative); KETONE, URINE NEGATIVE (Negative); LEUK ESTERASE, URINE NEGATIVE (negative); NITRITE, URINE NEGATIVE (negative)
[2024-07-21 13:55] LABS: CRYSTALS, URINE NONE SEEN (0-1+); EPITHELIAL CELLS, URINE SQUAMOUS 1+ /lpf (0-1+); RED BLOOD CELLS, URINE 0-1 /hpf (0-5); WHITE BLOOD CELLS, URINE 0-1 /HPF (0-5)
[2024-07-21 13:56] LABS: BACTERIA, URINE NONE SEEN /hpf (negative); CASTS, URINE NONE SEEN \\lpf; COLLECTION TYPE, URINE CLEAN CATCH; REFLEX CULTURE, URINE No (No)
[2024-07-21 14:25] VITALS: BP 110/82
== END 2024-07-21 14:25 | disposition home or self-care (01) ==
LOC: ED 11:27
PROVIDERS: Emergency Medicine
DX: K76.82 Hepatic encephalopathy (principal); I10 Essential (primary) hypertension; Z87.891 Personal history of nicotine dependence
CPT/HCPCS: 36415; 71045; 80053; 81001; 82140; 85025; 85610; 99285-25; J7040

== ENCOUNTER 2024-10-23 10:30 | Inpatient (IN) | payer MEDICARE, OTHER ==
[~2024-10-23] VITALS: Ht 185.4 cm; Wt 71.6 kg
[~2024-10-23 10:30] MED LIST changes: +CONSTULOSE10 GM/15 M PO
[2024-10-23] MEDS ORDERED: XIFAXAN550 MG PO (10:42)
[2024-10-23] MEDS ORDERED: HYDROXYZINE HCL25 MG PO (10:42)
[2024-10-23 11:09] LABS: BASOPHILS 0.7 % (0.2-1.2); EOSINOPHILS 2.1 % (0.8-7.0); LYMPHOCYTES 11.5 % (21.8-53.1); MCH 29.7 PG (25.7-32.2); MCHC 32.9 g/dL (32.3-36.5); MCV 90.1 fL (79.0-92.2); MONOCYTES 16.4 % (5.3-12.2); NEUTROPHILS 69.0 % (34.0-67.9); RBC 3.74 M/uL (4.63-6.08)
[2024-10-23 11:23] LABS: ALT (SGPT) 20.0 U/L (14-59); AST (SGOT) 28.0 U/L (15-37); GLOMERULAR FILTRATION RATE,EST 73.0 mL/min (>60); PROTEIN, TOTAL 6.2 g/dL (6.4-8.2); UREA NITROGEN 24.0 mg/dL (7-18)
[2024-10-23 12:09] LABS: BLOOD/HGB, URINE NEGATIVE (Negative); KETONE, URINE NEGATIVE (Negative); LEUK ESTERASE, URINE NEGATIVE (negative); NITRITE, URINE NEGATIVE (negative)
[2024-10-23] MEDS ORDERED: LACTULOSE 20 GM/30 ML CUP PO ONE (13:15)
[2024-10-23] MEDS ORDERED: SODIUM CHLORIDE 0.9% 1,000 ML IV SCH (15:00)
[2024-10-23] MEDS ORDERED: ACETAMINOPHEN 325 MG TAB PO PRN (16:15)
[2024-10-23] MEDS ORDERED: LACTATED RINGER'S 1,000 ML IV SCH (16:15)
--- NOTE | 2024-10-23 17:00 | NUR ---
THIS RN AND LOVELY BENNETTA TO ED TO MOVE PT FROM ED 6 TO ROOM 121. PT TRANSPORTED IN STRETCHER, MAX ASSIST TO MOVE TO HOSPITAL BED. THIS RN REMAINS IN ROOM FOR ADMISSION.
[2024-10-23 17:13] VITALS: BP 117/75
--- NOTE | 2024-10-23 17:59 | NUR ---
ADMISSION COMPLETE. PT RESTING IN BED WITH AND SON PRESENT, IS CURRENTLY ASSISTING PT TO EAT SUPPER. IVF INFUSING TO L WRIST WNL. PT DENIES PAIN OR DISCOMFORT AT THIS TIME. NO REQUESTS. CALL LIGHT IN REACH.
[2024-10-23 18:14] VITALS: BP 108/65
--- NOTE | 2024-10-23 18:17 | NUR ---
PATIENT IN BED AT THIS TIME. PROTECTIVE SERVICES CASE WORKER CHARTED VITALS AND I&O'S. CALL LIGHT WITHIN REACH, NO FURTHER NEEDS AT THIS TIME.
--- NOTE | 2024-10-23 19:25 | NUR ---
GOT REPORT FROM FURNITURE REPAIRER NURSE
[2024-10-23 20:04] VITALS: BP 102/61
--- NOTE | 2024-10-23 20:05 | NUR ---
Patient needed to use the urinal. 2 CNAs and this RN into room as patient has not been up since coming to the floor. Pt states he is not able to stand. He is able to get to the side of the bed with his feet on the floor. Patient able to use urinal. Pt has body shakes when trying to move himself. Bed changed as some urine got on bed. Patient given warm blanket. Baseball game on for patient to help as he is talking very hard on himself. Pt A&O x4. went home. Pt on RA. Slight redness on patients buttocks, barrier cream placed. Pt rolled to left side and pillow under right hip to get him off his buttocks.
[2024-10-23 20:10] VITALS: BP 102/61
[2024-10-23] MEDS ORDERED: PANTOPRAZOLE SODIUM 40 MG TABEC PO SCH (21:00)
[2024-10-23] MEDS ORDERED: MELATONIN 3 MG TAB PO PRN (21:00)
[2024-10-23] MEDS ORDERED: Rifaximin 550 MG TAB PO SCH (21:00)
[2024-10-23] MEDS ORDERED: LACTULOSE 20 GM/30 ML CUP PO SCH (21:00)
--- NOTE | 2024-10-23 21:18 | NUR ---
EVENING MEDICATIONS GIVEN. PATIENT WANTING TO KNOW WHEN THE DOCTOR WILL BE INTO SEE HIM. IV FLUIDS RUNNING, PUMP CLEARED. MEDICATIONS GIVEN. PATIENT DEPENDS CHECKED, DRY, CLEAN.
--- NOTE | 2024-10-23 22:22 | NUR ---
patient currently sleeping on his right side. Regular respirations noted.
--- NOTE | 2024-10-23 22:58 | NUR ---
Patient awake and states he is having trouble staying asleep. Pt given melatonin to rest. Warm blanket given.
[2024-10-24] VITALS (11 sets, daily range): BP systolic 89–105; BP diastolic 54–65
--- NOTE | 2024-10-24 00:01 | NUR ---
TAKING OVER CARE. PT RESTING, HOB ELEVATED ON ROOM AIR. TELE#[address] ivF INFUSING, SCDS IN PLACE, NO S/SX DISTRESS AT THIS TIME
--- NOTE | 2024-10-24 01:53 | NUR ---
PT USESD CALL LIGHT, C/O L LEG RESTLESSNESS, INVOLUNTARY LEG MOVEMENT NOTED LEFT LOWER LEG AND FOOT, SCDS IN PLACE, FOOT RUBBED DOWN AND WARM BLANKETS APPLIED TO L CALF AND FOOT, CALMED DOWN, DECLINED TYLENOL AT THIS TIME. REPOSITIONED. COOPERATIVE, ALERT AND ORIENTED TO ALL AT THIS TIME, PLACE, SITUATION, TOWN, A DAY OFF FROM DATE. CLEAR SPEECH, DENIES CHEST PAIN OR SOB. TELE#[address], AFIB RHYTHM. IVF INFUSING W/O PROBLEMS, TOLERATING SIPS OF FLUIDS
--- NOTE | 2024-10-24 04:28 | NUR ---
resting, eyes closed, no s/sx distress, tele#3 in place SR at this time. IVF infusing w/o problems, voided using urinal earlier
[2024-10-24 05:37] LABS: BASOPHILS 0.8 % (0.2-1.2); EOSINOPHILS 2.5 % (0.8-7.0); LYMPHOCYTES 17.7 % (21.8-53.1); MCH 30.1 PG (25.7-32.2); MCHC 32.7 g/dL (32.3-36.5); MCV 92.2 fL (79.0-92.2); MONOCYTES 16.5 % (5.3-12.2); NEUTROPHILS 62.1 % (34.0-67.9); RBC 3.35 M/uL (4.63-6.08)
[2024-10-24 05:53] LABS: ALT (SGPT) 25.0 U/L (14-59); AST (SGOT) 25.0 U/L (15-37); GLOMERULAR FILTRATION RATE,EST 75.0 mL/min (>60); PROTEIN, TOTAL 5.6 g/dL (6.4-8.2); SMEAR REVIEW BLOOD SEE COMMENTS; UREA NITROGEN 19.0 mg/dL (7-18)
--- NOTE | 2024-10-24 06:34 | NUR ---
Pt used call light. Used urinal, voiding dark yellow urine. was incontinent of urine in attends. small amount of red colored discharge noted front of attends and buttocks area. when wiped, no penile discharge noted, and no rectal discharge noted. Very stiff legs when turned. Tele in place SR at this time. denies CP. Scant amount of yellow soft and crusty eye drainage present. eye care done, red sclera and conjuctiva present. tender R eye compared to Left. Bruising arms no changes
--- NOTE | 2024-10-24 07:15 | NUR ---
REPORT RECIEVED FROM VAUGHN VENCES. PATIENT SITTING UP IN BED WITH HIS AT BEDSIDE. PATIENT WITHOUT ANY NEEDS AT THIS TIME. CALL LIGHT AND PERSONAL BELONGINGS ARE WITHIN REACH.
--- NOTE | 2024-10-24 08:08 | NUR ---
PATIENT MEDICATED PER EMAR. PATIENT SITTING UP IN BED EATING BREAKFAST WITH HIS AT BEDSIDE. PATIENT AND WITHOUT FURTHER NEEDS AT THIS TIME. CALL LIGHT AND PERSONAL BELONGINGS ARE WITHIN REACH.
--- NOTE | 2024-10-24 08:30 | NUR ---
HVAC SALES ENGINEER REPORTED TO THIS RN THAT PATIENT IS ACTIVELY BLEEDING FROM PENIS. THIS RN IN ROOM TO EVALUATE PATIENT. NO BLEEDING NOTED TO TIP OF PENIS. PATIENT REPORTS HE "WAS BLEEDING WHEN I WAS PEEING AND IT BURNED SEVERELY". URINE NOTED TO HAVE MIRCO BLOOD CLOTS AND DRIED BLOOD NOTED TO OUTSIDE OF URINAL. PATIENT DENIES ANY PAIN AT THIS TIME AND STATES "IT'S ONLY WHEN I'M PEEING". PATIENT WITHOUT FURTHER NEEDS AT THIS TIME. HVAC SALES ENGINEER AT BEDSIDE ASSISTING PATIENT WITH BEDPAN. CALL LIGHT AND PERSONAL BELONGINGS ARE WITHIN REACH.
--- NOTE | 2024-10-24 09:00 | NUR ---
PATIENT CALLED FOR BATHROOM ASSISTANCE. THERE WAS BLOOD ON THEIR BRIEF AND ON THE TIP OF THE PENIS. PATIENT REPORTED BURNING WHILE PEEING. SMALL BLOOD CLOTS WERE IN THE URINE. VAUGHN SWAN NOTIFIED IMMEDIATELY. PATIENT ALSO TRIED TO USE THE BEDPAN BUT HAD NO BOWEL MOVEMENT. THERE WAS FRESH BLOOD ON THE SHERI AND TIP OF THE PENIS. PATIENT WAS ASSISTED WITH CLEANING UP. FAMILY AND VAUGHN SWAN REENTERED THE ROOM.
--- NOTE | 2024-10-24 09:15 | NUR ---
PATIENT TAKEN TO MRI
--- NOTE | 2024-10-24 10:05 | NUR ---
SUPPOSITORY GIVEN PER ORDER. PATIENT TOLERATED WELL. PATIENT ASKS IF HE WILL NO LONGER BE RECIEVING LACTULOSE SINCE HE GOT THE SUPPOSITORY. THIS RN EDUCATED PATIENT THAT THE SUPPOSITORY IS A ONE TIME ORDER, BUT HE WILL STILL RECIEVE THE LACTULOSE 3X DAILY. PATIENT REPORTS THAT HE TAKES "3 TABLESPOONS EACH DOSE 3X A DAY AND A 4TH TABLESPOON EACH DOSE IF I DO NOT HAVE A BOWEL MOVEMENT". DR BANDA NOTIFIED, MD WITH NO VERBAL ORDER AT THIS TIME. PATIENT WITHOUT FURTHER NEEDS AT THIS TIME. CALL LIGHT AND PERSONAL BELONGINGS ARE WITHIN REACH.
[2024-10-24] MEDS ORDERED: MIRTAZAPINE15 MG PO (10:59)
[2024-10-24] MEDS ORDERED: VITAMIN C500 M1 PO (10:59)
[2024-10-24] MEDS ORDERED: IRON325 M1 PO (10:59)
--- NOTE | 2024-10-24 11:00 | NUR ---
MED REC COMPLETE
--- NOTE | 2024-10-24 11:10 | NUR ---
DR BANDA AT BEDSIDE
--- NOTE | 2024-10-24 11:44 | NUR ---
INTO SEE PATIENT. PERSONAL HEALTH INFORMATION REVIEWED. PATIENT LIVES AT HOME WTIH HIS . HAS ACCESS TO AN ELEVATOR SO HE DOES NOT HAVE TO USE THE STAIRS. PATIENT HAS NOT HAD TO USE ANY DME PRIOR. PATIENT YECENIA DRIVES ANYMORE. DENIES ANY DIFFCULTY PAYING UTLITIES OR OBTAINING FOOD. PATIENT FAMILY TALKS ABOUT POTENITAL NEED FOR SNF. PATIENT CHOICE LETTER GIVEN. THEY WOULD LIKE THE CHART SENT TO [facility] AT THE [facility].
--- NOTE | 2024-10-24 11:44 | NUR ---
UR CLINICAL REVIEW: 2 MN THERESA, MEETS INPT FOR HEPATIC ENCEPHALOPATHY CONFUSION, AMMONIA 41, NEED FOR IV FLUIDS, FURTHER IMAGING MEDICARE INPT 10/23/2024 @ 1631 ORDER MATCHES REG NO AUTH REQUIRED PER MEDICARE RULES PLAN TO DC TO HOME WHEN MEDICALLY STABLE.
--- NOTE | 2024-10-24 11:50 | NUR ---
PT AND OT IN ROOM WORKING WITH PATIENT AT THIS TIME.
--- NOTE | 2024-10-24 11:54 | NUR ---
PT REPORTED NEEDING TO HAVE A BOWEL MOVEMENT. I USED A BED CARDENAS AND HE HAD A MOVEMENT, THE RESULT WAS LARGE SIZED AND SOFT BUT FORMED. I CLEANED UP THE PT AND PLACED A NEW DIAPER ON THE PT.
[2024-10-24] MEDS ORDERED: PHARMACY RENAL DOSE ADJUSTMENT 1 DOSE MISC PO SCH (12:00)
[2024-10-24] MEDS ORDERED: SPIRONOLACTONE 25 MG TAB PO SCH (12:27)
--- NOTE | 2024-10-24 13:08 | NUR ---
PATIENT IN CHAIR AT THIS TIME. THIS SPECIAL EDUCATION TUTOR AND AND PT REFUGIO ASSISTED PATIEN TO BEDSIDE COMMODE AND THEN THIS SPECIAL EDUCATION TUTOR AND SPECIAL EDUCATION TUTOR ANJELICA ASSISTED PATIENT BACK TO CHAIR FROM BEDSIDE COMMODE. CALL LIGHT WITHIN REACH, NO FURTHER NEEDS AT THIS TIME.
--- NOTE | 2024-10-24 13:20 | NUR ---
VERIFIED WITH DR BANDA THAT WATNED SPIRONOLACTONE ADMINISTERED WITH PATIENT BLOOD PRESSURE OF 95/62 WITH MAP OF 70. MD STATES TO CONTINUE WITH MEDICATION ADMINISTRATION. MD WITHOUT FURTHER VERBAL ORDERS AT THIS TIME.
--- NOTE | 2024-10-24 14:55 | NUR ---
PATIENT RESTING IN BED ON HIS BACK WITH HIS EYES CLOSED AND HIS MOUTH OPEN. EVEN AND UNLABORED RESPIRATIONS NOTED. CALL LIGHT AND PERSONAL BELONGINGS ARE WITHIN REACH.
[2024-10-24] MEDS ORDERED: LACTULOSE 20 GM/30 ML CUP PO SCH (15:00)
--- NOTE | 2024-10-24 15:20 | NUR ---
PATIENT RESTING IN BED WITH HIS EYES CLOSED, EVEN AND UNLABORED RESPIRATIONS NOTED. CALL LIGHT AND PERSONAL BELONGINGS ARE WITHIN REACH.
--- NOTE | 2024-10-24 17:15 | NUR ---
PATIENT SET OFF BED ALARM, SON AT BEDSIDE. PATIENT REQUESTING TO GET UP TO USE THE BATHROOM. PATIENT AMBULATED TO BATHROOM VIA 1 PERSON ASSIST WITH A 2ND PERSON THERE FOR SUPPORT. PATIENT DID WELL WITH TRANSFERING, MUCH IMPROVEMENT FROM THIS MORNING. PATIENT AMBULATED BACK TO BED VIA 1 PERSON ASSIST WITH THE FWW. PATIENT IV FLUSHED WITH 10ML OF NS, DRESSING IS INTACT, LR INFUSING CONTINUOUS AT 100ML/HR PER ORDER. PATIENT DINNER TRAY ARRIVED. FAMILY AT BEDSIDE. ROSARIO CLEMONS BROUGHT IN FRESH ICE WATER FOR PATIENT. PATIENT AND FAMILY WITHOUT FURTHER NEEDS AT THIS TIME. CALL LIGHT AND PERSONAL BELONGINGS ARE WITHIN REACH.
--- NOTE | 2024-10-24 20:03 | NUR ---
REPORT RECEIVED FROM VAUGHN SWAN. PATIENT IN BED WITH HOB RAISED, EYES OPEN, CHEST RISE EQUAL AND UNLABORED. IV FLUID INFUSING WITHOUT DIFFICULTY. PATIENT DENIES CONCERNS AT THIS TIME. CALL LIGHT AND PERSONAL BELONGINGS IN REACH OF PATIENT.
[2024-10-24] MEDS ORDERED: MIRTAZAPINE 15 MG TAB PO SCH (21:00)
--- NOTE | 2024-10-24 21:00 | NUR ---
REHABILITATION PROGRAM COORDINATOR OBTAINED VITALS. NO NEW I&O AT THIS TIME. PT STATES NO NEEDS AND CALL LIGHT WITHIN REACH. BED ALARM ON.
--- NOTE | 2024-10-24 21:40 | NUR ---
SPOKE WITH MD, REVIEWED RECENT BLOOD PRESSURE READINGS. MEDICATION CHANGES AND IV FLUID CHANGES MADE BY MD. PER MD, "I AM COMFORTABLE LONG HIS MAP IS GREATER THAN 60". PATIENT IN BED WITH HOB RAISED, EYES OPEN, CHEST RISE EQUAL AND UNLABORED. ASSESSMENT COMNPLETED, SCHEDULED MEDICATIONS ADMINISTERED. IV FLUIDS DISCONTINUED, IV SITE SALINE LOCKED. PATIENT DENIES CONCERNS AT THIS TIME. SCDS IN PLACE. CALL LIGHT AND PERSONAL BELONGINGS IN REACH OF PATIENT.
--- NOTE | 2024-10-24 22:15 | NUR ---
PATIENT IN BED WITH HOB RAISED, EYES CLOSED, CHEST RISE EQUAL AND UNLABORED. SCDS IN PLACE. CALL LIGHT AND PERSONAL BELONGINGS IN REACH OF PATIENT. NO APPARENT NEEDS NOTED AT THIS TIME.
--- NOTE | 2024-10-24 23:10 | NUR ---
PATIENT CALL LIGHT ANSWERED WITH MEDIA ASSISTANT. PATIENT ASSISTED TO TOILET AND BACK TO BED. PATIENT GOWN AND BREIF CHANGED. PATIENT DENIES FURTHER CONCERNS AT THIS TIME. SCDS IN PLACE. PATIENT CALL LIGHT AND PERSONAL BELONGINGS IN REACH OF PATIENT.
[2024-10-25] VITALS (10 sets, daily range): BP systolic 90–100; BP diastolic 53–68
--- NOTE | 2024-10-25 02:03 | NUR ---
EARLY CHILDHOOD DIRECTOR OBTAINED VITALS AND I&O. PT BOOSTED IN BED WITH HELP OF VAUGHN HENRIQUEZ. PT STATES NO FURTHER NEEDS AT THIS TIME. CALL LIGHT WITHIN REACH AND BED ALARM ON.
--- NOTE | 2024-10-25 02:08 | NUR ---
PATIENT IN BED WITH HOB RAISED, EYES OPEN, CHEST RISE EQUAL AND UNLABORED. WATER POLLUTION SCIENTIST IN ROOM OBTAINING VITAL SIGNS. VITAL SIGNS COMPLETED, SCDS IN PLACE. PATIENT REPOSITIONED IN BED. PATIENT DENIES CONCERNS AT THIS TIME. CALL LIGHT AND PERSONAL BELONGINGS IN REACH OF PATEINT.
--- NOTE | 2024-10-25 02:50 | NUR ---
PATIENT CALL LIGHT ANSWERED. PATIENT IN BED, EYES OPEN, CHEST RISE EQUAL AND UNLABORED. PATIENT REPORTS HE IS "WET". PATIENT WITH URINARY INCONTINENCE. PATIENT GOWN, BREIF, AND BEDDING CHANGED. SCDS IN PLACE, CALL LIGHT AND PERSONAL BELONGINGS IN REACH OF PATIENT. PATIENT DENIES FURTHER CONCERNS AT THIS TIME.
--- NOTE | 2024-10-25 03:50 | NUR ---
PATIENT CALL LIGHT ANSWERED. PATIENT IN BED WITH HOB RAISED, EYES OPEN, CHEST RISE EQUAL AND UNLABORED. PATIENT REPORTS HE NEEDS TO HAVE A BM. PATIENT ASSISTED TO COMMODE THEN BACK TO BED WITH VAUGHN BARAJAS. BED ALARM SET, SCDS IN PLACE. CALL LIGHT AND PERSONAL BELONGINGS IN REACH OF PATIENT. PATEINT DENIES FURTHER CONCERNS AT THIS TIME.
[2024-10-25 05:26] LABS: BASOPHILS 0.3 % (0.2-1.2); EOSINOPHILS 3.0 % (0.8-7.0); LYMPHOCYTES 13.2 % (21.8-53.1); MCH 29.9 PG (25.7-32.2); MCHC 33.1 g/dL (32.3-36.5); MCV 90.1 fL (79.0-92.2); MONOCYTES 19.3 % (5.3-12.2); NEUTROPHILS 63.9 % (34.0-67.9); RBC 3.35 M/uL (4.63-6.08)
[2024-10-25 05:39] LABS: ALT (SGPT) 26.0 U/L (14-59); AST (SGOT) 26.0 U/L (15-37); GLOMERULAR FILTRATION RATE,EST 84.0 mL/min (>60); PROTEIN, TOTAL 5.5 g/dL (6.4-8.2); UREA NITROGEN 19.0 mg/dL (7-18)
--- NOTE | 2024-10-25 05:43 | NUR ---
WIRE WRAPPING MACHINE OPERATOR OBTAINED VITALS. NO NEW I&O AT THIS TIME. PT STATES NO NEEDS AND CALL LIGHT WITHIN REACH. BED ALARM ON.
--- NOTE | 2024-10-25 06:22 | NUR ---
PROVIDER NOTIFIED OF CRITICAL LAB VALUE, NO NEW ORDERS AT THIS TIME.
--- NOTE | 2024-10-25 06:32 | NUR ---
PATIENT IN BED WITH HOB RAISED, EYES OPEN, CHEST RISE EQUAL AND UNLABORED. SCHEDULED MEDICATION ADMINISTERED, FOCUSED ASSESSMENT COMPLETE. PATIENT DENIES CONCERNS AT THIS TIME. SCDS IN PLACE. PATIENT CALL LIGHT AND PERSONAL BELONGINGS IN REACH OF PATIENT.
--- NOTE | 2024-10-25 07:12 | NUR ---
REPORT RECIEVED FROM VAUGHN HENRIQUEZ AND VAUGHN BARAJAS. PATIENT RESTING IN BED WITH HIS EYES CLOSED AND HOB ELEVATED. EVEN AND UNLABORED RESPIRATIONS NOTED. CALL LIGHT AND PERSONAL BELONGINGS ARE WITHIN REACH.
--- NOTE | 2024-10-25 08:50 | NUR ---
PATIENT SITTING UP IN HIS CHAIR EATING BREAKFAST WITH HIS AT BEDSIDE. CALL LIGHT AND PERSONAL BELONGINGS ARE WITHIN REACH.
--- NOTE | 2024-10-25 09:08 | NUR ---
PATIENT SITTING UP IN HIS CHAIR AND FINISHED WITH HIS BREAKFAST. PATIENT MEDICATED PER EMAR. PATIENT AT BEDSIDE. PATIENT AND FAMILY WITHOUT FURTHER NEEDS AT THIS TIME. CALL LIGHT AND PERSONAL BELONGINGS ARE WITHIN REACH.
--- NOTE | 2024-10-25 09:29 | NUR ---
PATIENT TRANSFERRED BACK TO BED PER PATIENT REQUEST. PATIENT TRANSFERRED VIA 2PR ASSIST WITH THE FWW. SUPPOSITORY GIVEN, PATIENT TOLERATED WELL. REDNESS NOTED TO PATIETN COCCYX, NO OPEN SKIN NOTED. ALLEVYN PLACED AT THIS TIME. 7UP PROVIDED TO PATIENT PER REQUEST. PATIENT WITHOUT FURTHER NEEDS AT THIS TIME. PATIENT AT BEDSIDE. CALL LIGHT AND PERSONAL BELONGINGS ARE WITHIN REACH.
--- NOTE | 2024-10-25 10:39 | NUR ---
PATIENT ACCEPTED AT [facility]. FAMILY WILL PAY FOR THE WC VAN RIDE THAT IS SCHEDULED AT 11:45 AM ON Monday10/28/24.
--- NOTE | 2024-10-25 11:45 | NUR ---
FRESH LINEN PROVIDED, BEDSIDE TABLES CLEANED AND WIPED OFF. PATIENT SITTING UP IN HIS CHAIR EATING LUNCH WITH HIS AT BEDSIDE. CHAIR ALARM ACTIVATED, CALL LIGHT AND PERSONAL BELONGINGS ARE WITHIN REACH.
--- NOTE | 2024-10-25 12:03 | NUR ---
PATIENT TRANSFERED BACK TO BED VIA 2PR ASSIST WITH THE FWW. PATIENT REQUESTING TO GET SOME REST AND IS WITHOUT FURTHER NEEDS AT THIS TIME. CALL LIGHT AND PERSONAL BELONGINGS ARE WITHIN REACH.
--- NOTE | 2024-10-25 12:20 | NUR ---
VISITED DURING SPIRITUAL CARE ROUNDS. PT SUPPORTED BY IN ROOM. TALKED WITH PT AFTER LEFT TO GET LUNCH. PT TALKED OF LIFE WELL-LIVED, AWARENESS OF OWN MORTALITY, EXPRESSED SITUATIONALLY APPROPRIATE EMOTIONS, PEACE. BLOCK PILER PROVIDED SUPPORTIVE PRESENCE, PRAYER.
--- NOTE | 2024-10-25 13:34 | NUR ---
PATIENT RESTING IN BED WITH FAMILY AT BEDSIDE. NO NEEDS AT THIS TIME. CALL LIGHT AND PERSONAL BELONGINGS ARE WITHIN REACH.
--- NOTE | 2024-10-25 15:52 | NUR ---
PATIENT RESTING IN BED WITH HIS EYES CLOSED. EVEN AND UNLABORED RESPIRATIONS NOTED. CALL LIGHT AND PERSONAL BELONGINGS ARE WITHIN REACH. PATIENT'S SON AT BEDSIDE.
--- NOTE | 2024-10-25 16:38 | NUR ---
PATIENT RESTING IN BED WITH EYES CLOSED AND MOUTH OPEN. EVEN AND UNLABORED RESPIRATIONS NOTED. PATIENT EASILY AROUSABLE WITH VERBAL STIMULI. PATIENT MEDICATED PER EMAR. PATIENT SITTING UP IN BED WITH FAMILY AT BEDSIDE. FRESH 7UP PROVIDED. PATIENT AND FAMILY WITHOUT FURTHER NEEDS AT THIS TIME. CALL LIGHT AND PERSONAL BELONGINGS ARE WITHIN REACH.
--- NOTE | 2024-10-25 17:58 | NUR ---
PATIENT RESTING IN BED WITH FAMILY AT BEDSIDE. PATIENT STATES HE "MIGHT BE ABLE TO HAVE ONE" WHEN ASKED IF HE FEELS THAT HE NEEDS AT HAVE A BOWEL MOVEMENT. ROSARIO MURRY IN ROOM TO ASSIST THIS RN WITH PATIENT TRANSFER UP TO BEDSIDE COMMODE.
--- NOTE | 2024-10-25 18:25 | NUR ---
PATIENT BACK IN BED AFTER HAVING SMALL BM. NEW ALLEVYN APPLIED TO PATIENT'S COCCYX. PATIENT WITHOUT FURTHER NEEDS AT THIS TIME. CALL LIGHT AND PERSONAL BELONGINGS ARE WITHIN REACH.
--- NOTE | 2024-10-25 19:25 | NUR ---
REPORT RECEIVED FROM VAUGHN SWAN. PATIENT IS RESTING IN BED COMFORTABLY, SCROLLING ON PHONE. HE DENIES ANY NEEDS AT THIS TIME, BED ALARM ON. RESPIRATIONS EVEN AND UNLABORED. CALL LIGHT IN REACH.
--- NOTE | 2024-10-25 21:47 | NUR ---
VS OBTAINED AND RECORDED. INTAKE AND OUTPUT DOCUMENTED. ASSESSMENT COMPLETE. SCHEDULED MEDICATIONS ADMINISTERED PER ORDER. PATIENT UP TO RESTROOM WITH X2 ASSIST AND USE OF FWW, BACK TO BED WITHOUT DIFFICULTY. FOLLOWED ALL INSTRUCTIONS APPROPRIATELY. PATIENT ANSWERED ALL ORIENTATION QUESTIONS CORRECTLY. SCD IN PLACE, RESPIRATIONS EVEN AND UNLABORED. BED ALARM ON. NO FURTHER NEEDS AT THIS TIME.
--- NOTE | 2024-10-25 23:18 | NUR ---
CALL LIGHT ANSWERED, PATIENT UP TO RESTROOM WITH X2 PERSON ASSIST AND FWW USE. BACK TO BED WITHOUT DIFFICULTIES, NEW BRIEF IN PLACE. SCD IN PLACE, BED ALARM ON. HE DENIES FURTHER NEEDS, CALL LIGHT IN REACH.
[2024-10-26] VITALS (11 sets, daily range): BP systolic 90–108; BP diastolic 60–77
--- NOTE | 2024-10-26 00:41 | NUR ---
CALL LIGHT ANSWERED, PATIENT UP TO RESTROOM WITH X2 ASSIST, FWW IN USE. BACK TO BED WITHOUT DIFFICULTY. REDNESS NOTED ON PATIENT BUTTOCKS, BARRIER CREAM PLACED ON PATIENT. PRN MEDICATION ADMINISTERED PER PATIENT REQUEST TO ASSIST WITH SLEEP. IN BED COMFORTABLY, HE DENIES ANY NEEDS, CALL LIGHT IN REACH. BED ALARM ON.
--- NOTE | 2024-10-26 01:45 | NUR ---
VS OBTAINED AND RECORDED. INTAKE AND OUTPUT DOCUMENTED. PATIENT IS RESTING ON LEFT SIDE, DROWSY BUT RESPONSIVE TO VERBAL CUES. RESPIRATIONS ARE EVEN AND UNLABORED. NO NEEDS IDENTIFIED, CALL LIGHT IN REACH.
--- NOTE | 2024-10-26 03:45 | NUR ---
ROUNDED ON PATIENT, RESPIRATIONS EVEN AND UNLABORED, RESTING WITH EYES CLOSED. NO NEEDS IDENTIFIED, BED ALARM ON, SCD IN PLACE. CALL LIGHT IN REACH
[2024-10-26 05:12] LABS: BASOPHILS 0.7 % (0.2-1.2); EOSINOPHILS 2.4 % (0.8-7.0); LYMPHOCYTES 15.6 % (21.8-53.1); MCH 30.1 PG (25.7-32.2); MCHC 33.6 g/dL (32.3-36.5); MCV 89.7 fL (79.0-92.2); MONOCYTES 16.7 % (5.3-12.2); NEUTROPHILS 64.6 % (34.0-67.9); RBC 3.29 M/uL (4.63-6.08)
[2024-10-26 05:25] LABS: GLOMERULAR FILTRATION RATE,EST 86.0 mL/min (>60); UREA NITROGEN 19.0 mg/dL (7-18)
--- NOTE | 2024-10-26 05:55 | NUR ---
CALL LIGHT ANSWERED, PATIENT NEEDED TO VOID. STOOD AT BEDSIDE, VOIDED USING URINAL WITH X2 PERSON ASSIST FOR STABILITY. PATIENT FOLLOWED ALL INSTRUCTIONS CORRECTLY, ASKING APPROPRIATE SAFETY CUEING QUESTIONS. PATIENT AMBULATED TO CHAIR WITH X2 PERSON ASSIST AND USE OF FWW, SITTING UPRIGHT IN CHAIR, WARM BLANKET PROVIDED PER REQUEST. VS OBTAINED AND RECORDED, INTAKE AND OUTPUT DOCUMENTED. HE DENIES OTHER NEEDS, CALL LIGHT IN REACH.
--- NOTE | 2024-10-26 06:38 | NUR ---
TC PLACED TO DR. COHEN TO NOTIFY OF CRITICAL LAB VALUE. NO NEW ORDERS AT THIS TIME.
--- NOTE | 2024-10-26 07:36 | NUR ---
REPORT RECIEVED FROM VAUGHN BARAJAS. PATIENT SITTING UP IN HIS CHAIR. PATIENT MEDICATED PER EMAR. PATIENT TELE REMOVED AND UP TO BATHROOM FOR A SHOWER. PATIENT TRANSFERRED VIA 2PR ASSIST FOR SAFETY WITH THE FWW. ROSARIO ROSE IN ROOM TO ASSIST WITH PATIENTS SHOWER.
--- NOTE | 2024-10-26 08:05 | NUR ---
FRESH GOWN, SOCKS, AND BRIEF PROVIDED. ALLEVYN PLACED TO COCCYX DUE TO REDNESS. CAVILON BARRIER APPLIED TO PATIENT'S GLUTES TO PREVENT BREAKDOWN, SUPPOSITY GIVEN. PATIENT BACK IN HIS CHAIR, BREAKFAST TRAY SET UP FOR PATIENT. FRESH ICE WATER PROVIDED. PATIENT WITHOUT FURTHER NEEDS AT THIS TIME. CALL LIGHT AND PERSONAL BELONGINGS ARE WITHIN REACH.
--- NOTE | 2024-10-26 08:42 | NUR ---
2PA TO THE BATHROOM. 1PA IN THE SHOWER. VAUGHN SWAN ENTERED THE ROOM FOR PATIENT CARE. PATIENT SAT UP IN THEIR CHAIR FOR BREAKFAST.
--- NOTE | 2024-10-26 08:48 | NUR ---
PATIENT'S AT BEDSIDE.
--- NOTE | 2024-10-26 09:52 | NUR ---
DR COHEN AT BEDSIDE
[2024-10-26] MEDS ORDERED: FUROSEMIDE 40 MG TAB PO SCH (09:55)
--- NOTE | 2024-10-26 10:15 | NUR ---
PATIENT SITTING UP IN BED WITH HIS AT BEDSIDE. PATIENT WITHOUT ANY NEEDS AT THIS TIME. CALL LIGHT AND PERSONAL BELONGINGS ARE WITHIN REACH.
[2024-10-26] MEDS ORDERED: SPIRONOLACTONE 100 MG TAB PO SCH (10:19)
--- NOTE | 2024-10-26 11:00 | NUR ---
PATIENT RESTING IN BED WITH HIS EYES CLOSED, SNORING NOTED. PATIENT EASILY AROUSABLE WITH VERBAL STIMULI. PATIENT MEDICATED PER EMAR. PATIENT'S AT BEDSIDE. PATIENT WITHOUT FURTHER NEEDS AT THIS TIME. CALL LIGHT AND PERSONAL BELONGINGS ARE WITHIN REACH. PATIENT REQUESTING TO REST UNTIL LUNCH TIME AND STATES HE WILL CALL IF HE NEEDS ANYTHING.
--- NOTE | 2024-10-26 12:30 | NUR ---
PATIENT RESTING IN BED WITH HIS AND SON AT BEDSIDE. PATIENT AND FAMILY IS WITHOUT ANY NEEDS AT THIS TIME. CALL LIGHT AND PERSONAL BELONGINGS ARE WITHIN REACH.
--- NOTE | 2024-10-26 13:45 | NUR ---
PATIENT RESTING IN BED WITH HIS EYES CLOSED. EVEN AND UNLABORED RESPIRATIONS NOTED. PATIENT'S AT BEDSIDE. CALL LIGHT AND PERSONAL BELONGINGS ARE WITHIN REACH.
--- NOTE | 2024-10-26 14:45 | NUR ---
PATIENT RESTING IN BED WITH HIS EYES CLOSED, EVEN AND UNLABORED RESPIRATIONS NOTED. PATIENT'S AT BEDSIDE. CALL LIGHT AND PERSONAL BELONGINGS ARE WITHIN REACH.
--- NOTE | 2024-10-26 15:30 | NUR ---
PATIENT RESTING IN BED WITH HIS EYES CLOSED, EVEN AND UNLABORED RESPIRATIONS NOTED. CALL LIGHT AND PERSONAL BELONGINGS ARE WITHIN REACH.
--- NOTE | 2024-10-26 16:20 | NUR ---
PATIENT MEDICATED PER EMAR. PATIENT RESTING IN BED AND REQUESTING TO USE THE BATHROOM. RETAIL MANAGEMENT KEYHOLDER'S IN ROOM TO ASSIST PATIENT UP TO THE BATHROOM.
--- NOTE | 2024-10-26 16:37 | NUR ---
PATIENT SITTING UP IN CHAIR AFTER USING BATHROOM. ICECREAM WITH SODA PROVIDED. PATIENT WITHOUT FURTHER NEEDS AT THIS TIME. CALL LIGHT AND PERSONAL BELONGINGS ARE WITHIN REACH.
--- NOTE | 2024-10-26 17:20 | NUR ---
PATIENT SITTING UP IN HIS CHAIR TALKING WITH FAMILY AND VISITORS. PATIENT WITHOUT ANY NEEDS AT THIS TIME. CALL LIGHT AND PERSONAL BELONGINGS ARE WITHIN REACH.
--- NOTE | 2024-10-26 18:11 | NUR ---
PT WAS IN THE CHAIR FOR DINNER, BUT THEN WALKED IN TO THE BATHROOM AND HAD A LARGE BOWEL MOVEMENT. PT THEN TOOK A LARGE LAP IN THE ROOM AND HEADED BACK TO HIS BED. CALL LIGHT WITHIN REACH AND PT HAS ICE WATER NEXT TO HIM ON THE BEDSIDE TRAY. PT HAS TWO VISITORS IN HIS ROOM.
--- NOTE | 2024-10-26 18:55 | NUR ---
PATIENT RESTING IN BED WITH HIS AND VISITORS AT BEDSIDE. PATIENT REQUESTING TO HAVE MELATONIN WITH HIS NIGHT MEDS. THIS RN LET PATIENT KNOW IT WILL BE PASSED ON TO HIS NIGHT NURSE. PATIENT WITHOUT FURTHER NEEDS AT THIS TIME. CALL LIGHT AND PERSONAL BELONGINGS ARE WITHIN REACH.
--- NOTE | 2024-10-26 19:34 | NUR ---
REPORT RECEIVED FROM VAUGHN SWAN. PATIENT RESTING COMFORTABLY IN BED, RESPIRATIONS ARE EVEN AND UNLABORED. HE DENIES ANY NEEDS, REQUESTING PRN MEDICATION FOR SLEEP WITH REGULAR NIGHTTIME MEDS. CALL LIGHT IN REACH.
--- NOTE | 2024-10-26 20:37 | NUR ---
PATIENT ASSISTED TO RESTROOM WITH X2 PERSON ASSIST AND FWW. BACK TO BED WITHOUT DIFFICULTY. VS OBTAINED AND RECORDED, INTAKE AND OUTPUT DOCUMENTED. SCHEDULED MEDICATIONS GIVEN TO PATIENT PER ORDER. FRESH WATER PROVIDED PER REQUEST. NO FURTHER NEEDS AT THIS TIME, CALL LIGHT IN REACH
--- NOTE | 2024-10-26 22:15 | NUR ---
PATIENT RESTING WITH EYES CLOSED, RESPIRATIONS EVEN AND UNLABORED. NO NEEDS IDENTIFIED, BED ALARM ON. CALL LIGHT IN REACH
--- NOTE | 2024-10-26 23:10 | NUR ---
IN ROOM TO ASSIST PATIENT TO THE RESTROOM WITH ENVELOPE ADJUSTER, BACK TO BED WITH X2 PERSON ASSIST AND USE OF FWW. PRN MEDICATION FOR SLEEP ADMINISTERED PER REQUEST. PATIENT IN BED, BED ALARM ON, HE DENIES ANY NEEDS, CALL LIGHT IN REACH
[2024-10-27] VITALS (17 sets, daily range): BP systolic 88–135; BP diastolic 51–66
--- NOTE | 2024-10-27 03:55 | NUR ---
ROUNDED ON PATIENT, PATIENT IS RESTING WITH EYES CLOSED, RESPIRATIONS ARE EVEN AND UNLABORED. NO NEEDS IDENTIFIED, SCD IN PLACE. CALL LIGHT IN REACH
--- NOTE | 2024-10-27 04:28 | NUR ---
CALL LIGHT ANSWERED. UP TO RESTROOM WITH X2 PERSON ASSIST AND USE OF FWW. BACK TO BED WITHOUT DIFFICULTY. BED ALARM ON, SCD IN PLACE. FRESH WATER PROVIDED TO PATIENT PER REQUEST. NO FURTHER NEEDS, CALL LIGHT IN REACH
[2024-10-27 05:08] LABS: BASOPHILS 0.6 % (0.2-1.2); EOSINOPHILS 2.6 % (0.8-7.0); LYMPHOCYTES 14.8 % (21.8-53.1); MCH 29.5 PG (25.7-32.2); MCHC 32.9 g/dL (32.3-36.5); MCV 89.6 fL (79.0-92.2); MONOCYTES 18.3 % (5.3-12.2); NEUTROPHILS 63.4 % (34.0-67.9); RBC 3.36 M/uL (4.63-6.08)
[2024-10-27 05:17] LABS: GLOMERULAR FILTRATION RATE,EST 77.0 mL/min (>60); UREA NITROGEN 17.0 mg/dL (7-18)
--- NOTE | 2024-10-27 05:36 | NUR ---
TELE BATTERY CHANGED. PATIENT HOB ADJUSTED PER REQUEST. RESPIRATIONS EVEN AND UNLABORED, HE DENIES ANY NEEDS. CALL LIGHT IN REACH
--- NOTE | 2024-10-27 05:42 | NUR ---
Lab notified this RN of pts low critical lab values Plalets 39. Primary RN Radha notified, chronic low plalets for pt condition. she will call
--- NOTE | 2024-10-27 06:38 | NUR ---
SCHEDULED MED GIVEN TO PATIENT PER ORDER. PATIENT CONTINUES TO REST, RESPIRATIONS EVEN AND UNLABORED. NO FURTHER NEEDS, CALL LIGHT IN REACH, BED ALARM ON.
--- NOTE | 2024-10-27 06:40 | NUR ---
TC TO HOSPITALIST TO INFORM OF CRITICAL VALUE, NO NEW ORDERS.
--- NOTE | 2024-10-27 07:25 | NUR ---
PT RESTING EYES CLOSED AT TIME OF SHIFT REPORT, LEFT UNDISTURBED. CALL LIGHT AND NEEDED ITEMS AT BEDSIDE
[2024-10-27] MEDS ORDERED: LACTULOSE 20 GM/30 ML CUP PO SCH (09:00)
[2024-10-27] MEDS ORDERED: SPIRONOLACTONE 25 MG TAB PO SCH (09:00)
[2024-10-27] MEDS ORDERED: FUROSEMIDE 20 MG TAB PO SCH (09:00)
--- NOTE | 2024-10-27 09:09 | NUR ---
PT AWAKE NOW BREAKFAST WELL TOLERATED. PT DENIES DISCOMFORTS. HE ASKS SEVERAL QUETSIONS ABOUT MEDS AND LABS ALL QUESTIONS ANSWERED. P/T IN TO WORK WITH HIM NOW
--- NOTE | 2024-10-27 10:04 | NUR ---
DR COHEN IN TO SEE PT DISCUSSES PLAN GOING FORWARD ALL QUESTIONS ANSWERED.
--- NOTE | 2024-10-27 11:00 | NUR ---
PT UP TO TOILET AT THIS TIME. IS PRESENT STATES HOW MUCH BETTER HE IS DOING TODAY. VITALS REVIEWED AND TAKEN AGAIN CHARTING APPEARED ODD. WRONG SET DOCUMENTED FOR THIS PT 135/ SOMETHING WAS A DIFFERENT PT. PT BP CONTINUES TO RUN SOFT AT THIS TIME HE DENIES DIZZINESS OR OTHER S/S
--- NOTE | 2024-10-27 11:35 | NUR ---
PT PASSES A MEDIUM AMOUNT OF STOOL THEN RETURNS TO REST IN BED. REMAINS AT BEDSIDE H20 PROVIDED OTHER NEEDS DENIED
--- NOTE | 2024-10-27 11:56 | NUR ---
cALL LIGHT WITHIN NREACH.PT RESTING IN BED, DOZING IN AND OUT. PT HAS TWO VISITORS IN ROOM. WATER NEXT TO BED AND PT IS REQUESTING NOTHING ELSE AT THIS TIME.
--- NOTE | 2024-10-27 11:59 | NUR ---
tHESE VITALS WERE TAKEN AT 0728, I FORGOT TO PUT THEM INTO PT'S CHART. TIME EDIT IS IN PLACE. PT WAS SITTING UP IN BED, UPON RETURNING FROM USING THE TOILET.
--- NOTE | 2024-10-27 12:10 | NUR ---
PT HAD RETURNED TO BED FROM USING THE RESTROOM, HE URINATED ONLY. PT HAS WATER AND CALL LIGHT. PT REPORTS NEEDING NOTHING ELSE AT THIS TIME.
--- NOTE | 2024-10-27 12:15 | NUR ---
PT SITTING UP IN BED EATING NOON MEAL VISITING WITH . DENIES NEEDS AT THIS TIME
--- NOTE | 2024-10-27 13:03 | NUR ---
PT ATE NEARLY ALL OF NOON MEAL, RESTING EYES CLOSED.
--- NOTE | 2024-10-27 14:34 | NUR ---
PT RESTING IN BED, HEAD UP, WATCHING TV- GOLF. PT REQUESTED ANOTHER LEMON-WASHOE SODA AND FRESH ICE FOR HIS WATER - I GOT BOTH. CALL LIGHT WITHIN REACH. PT REPORTS NEEDING NOTHING ELSE AT THIS TIME. CLEANED UP ROOM- EMPITED TRASH.
--- NOTE | 2024-10-27 14:52 | NUR ---
HELPED PT MOVE FROM BED TO CHAIR, HE WAS COMPLAINING THAT THE BED IS UNCOMFORTABLE. MOVED PT'S WATER AND SODA TO THE TABLE BY HIS CHAIR. PT MADE A PHONE CALL, HE IS IN THE CHAIR WITH HIS FEET UP AND WATCHING TV. CALL LIGHT WITHIN REACH. PT REPORTED NEEDING NOTHING ELSE AT THIS TIME. PT DID NOT WANT A BED BATH.
--- NOTE | 2024-10-27 14:57 | NUR ---
PT IS UP IN THE CHAIR TALKING ON THE PHONE, CALL LIGHT IN REACH.
--- NOTE | 2024-10-27 15:58 | NUR ---
PT CONTINUES UP IN THE CHAIR USING HIS PHONE. DENIES NEEDS
--- NOTE | 2024-10-27 16:24 | NUR ---
VERBAL REPORT RECEIVED FROM VAUGHN MONROE.
--- NOTE | 2024-10-27 17:03 | NUR ---
PT SITS UP IN RECLINER, EATS DINNER. CALL LIGHT IN REACH. FAMILY MEMBER X1 IN ROOM. NO REQUESTS AT THIS TIME.
--- NOTE | 2024-10-27 18:10 | NUR ---
PT SITS UP IN RECLINER, AWAKE AND ALERT, VISITOR X1 IN ROOM. CALL LIGHT IN REACH, NO REQUESTS AT THIS TIME.
--- NOTE | 2024-10-27 19:11 | NUR ---
PT AMBULATED FROM HIS CHAIR TO BED. PT DID WELL, SEEMED STRONG. PT REPORTED BEING A LITTLE COLD - GOT HIM A WARM BLANKET. CALL LIGHT WITHIN REACH. PT HAS WATER NEXT TO BED. PT REPORTED NEEDING NOTHING ELSE AT THIS TIME.
--- NOTE | 2024-10-27 21:14 | NUR ---
PT AWAKE, ALERT AND ORIENTED TO ALL. ON ROOM AIR, LUNGS DIM AT BASES. NO C/O SOB OR CP AT THIS TIME. COOPERATIVE WITH VITALS AND ASSESSMENTS. BILAT EYES CONJUCTIVA RED, VERY MINIMUM OF YELLOW DISCHARGE. ABD SOFT KATIA, LBM TODAY, GETS LACTULOSE. R UPPER ABD MASS RAISED, SOFT TO TOUC NON TENDE, RED AREA L ABD SIDE. ATTENDS IN PLACE. RED INGUINAL AREA HEALIG, BRUISING HANDS HEALING. SL LFA PATENT. SCDS BILAT LE. TRIED TO HELP WITH TURNING. TOOK AND TOLERATED SIPS OF FLUIDS. REPOSITIONED IN BED. DENIES FEELING [id number] BP 91/56.
--- NOTE | 2024-10-28 01:01 | NUR ---
PATIENT CALLED TO USE THE RESTROOM. 1 PA USING WALKER. PATIENT HAD LOOSE BM IN LARGE QUANTITY AND UNMEASURED URINE. FRESH PULL UPS PROVIDED. CONNIE CARE ASSISTED. PATIENT IS BACK IN BED. PATIENT WALKING SLOW AND TOLERATED WELL. SCD'S ARE ON. CALL LIGHT AND SIDE TABLE WITHIN REACH. NO FURTHER NEEDS AT THIS TIME.
--- NOTE | 2024-10-28 02:42 | NUR ---
Resting, eyes closed, no s/sx distress. SCD on. Voided and was Repositioned earlier
[2024-10-28 03:53] VITALS: BP 91/56
[2024-10-28 05:10] VITALS: BP 91/52
--- NOTE | 2024-10-28 05:19 | NUR ---
awake for lab draws, cooperative with draw and vitals and second assessment. SCD's in place
[2024-10-28 05:21] VITALS: BP 91/52
[2024-10-28 05:23] LABS: GLOMERULAR FILTRATION RATE,EST 87.0 mL/min (>60); UREA NITROGEN 20.0 mg/dL (7-18)
--- NOTE | 2024-10-28 07:12 | NUR ---
PT RESTING SOUNDLY AT TIME OF SHIFT REPORT, LEFT UNDISTURBED. AWAKE NOW PROTONIX ADMINISTERED SCHEDULED. PT REMAINS IN BED AT THIS TIME DENIES UP TO THE CHAIR. FRESH H20 TO BEDSIDE CALL LIGHT IN REACH.
[2024-10-28] MEDS ORDERED: MAGNESIUM SULFATE 2 GM/50 ML BAG IV ONE (08:15)
[2024-10-28] MEDS ORDERED: POTASSIUM CHLORIDE 10 MEQ TABCR PO ONE (08:15)
--- NOTE | 2024-10-28 08:15 | NUR ---
PATIENT WAS ASSISTED IN THE SHOWER. SKIN CARE, SHAMPOO AND PERICARE WAS DONE. PATIENT HAS A NEW BRIEF AND DOWN. PATIENT IS NOW SITTING UP TO EAT BREAKFAST. PATIENTS CALL LIGHT IS WITHIN REACH AND NO FUTHER NEEDS AT THIS TIME.
--- NOTE | 2024-10-28 08:46 | NUR ---
DR COHEN IN TO SEE PT MEDICATIONS DISCUSSED AT LENGTH PT DECLINES FUROSEMIDE AND SIRONOLACTONE VERBALIZES UNDERSTANDING THAT THESE MEDS PREVENT FLUID BUILD UP. ALL QUESTIONS ANSWERED. PT READY FOR DC
[2024-10-28] MEDS ORDERED: IRON325 M1 PO (08:51)
[2024-10-28] MEDS ORDERED: LACTULOSE10 GM/151 PO (08:52)
[2024-10-28] MEDS ORDERED: MIRALAX17 GM PO (09:00)
[2024-10-28 09:01] VITALS: BP 88/57
--- NOTE | 2024-10-28 09:01 | NUR ---
CHART UPDATES SENT TO HEMANT SAUCEDO.
--- NOTE | 2024-10-28 09:05 | NUR ---
PT HAD HIS SHOWER BEFORE MORNING MEAL WELL TOLERATED. HE IS DOING ORAL CARE NOW AND PREPARING FOR DC. STATES SOMEONE IS TO BRING HIS CLOTHES
--- NOTE | 2024-10-28 09:24 | NUR ---
ORDERS, EMAR, PASSR SENT TO HEMANT SAUCEDO. INTO SEE PATIENT. IMM LETTER COMPLETED. PATIENT WAITING TRANSPORTATION AT 1145. NO FUTHER CM NEEDS.
--- NOTE | 2024-10-28 09:46 | NUR ---
VISITED DURING SPIRITUAL CARE ROUNDS. PT EXPRESSED UNCERTAINTY, CONCERN REGARDING UNKNOWN NEXT STEPS, AWARENESS OF MORTALITY, TALKED OF PLANS MADE WITH KIM LEADER FOR [facility]. SOLAR PANEL TECHNICIAN PROVIDED SUPPORTIVE PRESENCE, HOSPITALITY, PRAYER. PT EXPRESSED GRATITUDE, PEACE.
--- NOTE | 2024-10-28 10:57 | NUR ---
IN TO ASSIST PATIENT OUT OF RESTROOM, 1PA FWW TO BED. PATINET DRESSED IN PERSONAL CLOTHING. IV TAKEN OUT UPON RN REQUEST. CATH INTACT AND LOOKED GOOD, RN NOTIFIED. CALL LIGHT IN REACH. IN ROOM. NO FURHTER NEEDS AT THIS TIME.
--- NOTE | 2024-10-28 11:28 | NUR ---
PT DRESSED AND READY FOR DC IS PRESENT. PERSONAL ITEMS GATHERED PT HAS PERSONAL PHONE
--- NOTE | 2024-10-28 11:46 | NUR ---
REPORT PHONED TO HEMANT SAUCEDO RN ALL QUESTIONS ANSWERED AND PHONE NUMBER PROVIDED FOR ANY NEEDED F/U
== END 2024-10-28 11:45 | DRG 441 ==
LOC: ED 10:30 → MS 16:42
PROVIDERS: Emergency Medicine; Student in an Organized Health Care Education/Training Program; ADMIT Student in an Organized Health Care Education/Training Program; ATTEND Student in an Organized Health Care Education/Training Program
DX: K76.82 Hepatic encephalopathy (principal); N18.6 End stage renal disease; D84.9 Immunodeficiency, unspecified; I50.32 Chronic diastolic (congestive) heart failure; R18.8 Other ascites; I13.2 Hypertensive heart and chronic kidney disease with heart failure and with stage 5 chronic kidney disease, or end stage renal disease; K76.6 Portal hypertension; D61.818 Other pancytopenia; Z66 Do not resuscitate; Z92.21 Personal history of antineoplastic chemotherapy; K21.9 Gastro-esophageal reflux disease without esophagitis; F41.1 Generalized anxiety disorder; Z85.46 Personal history of malignant neoplasm of prostate; Z87.19 Personal history of other diseases of the digestive system; Z85.038 Personal history of other malignant neoplasm of large intestine; Z85.05 Personal history of malignant neoplasm of liver; D69.6 Thrombocytopenia, unspecified; K74.60 Unspecified cirrhosis of liver; Z88.8 Allergy status to other drugs, medicaments and biological substances; Z79.899 Other long term (current) drug therapy; Z90.49 Acquired absence of other specified parts of digestive tract
CPT/HCPCS: 36415; 70450; 70551; 71045; 74176; 76705; 80048; 80053; 81003; 82140; 82607; 83735; 84443; 85025; 85060; 97110; 97116; 97162; 97166; 97530; A9270; J3475; J7030; J7121

== ENCOUNTER 2025-02-04 22:09 | Emergency (ER) | payer MEDICARE, OTHER ==
[~2025-02-04] VITALS: Ht 188 cm; Wt 78.3 kg
[~2025-02-04 22:09] MED LIST changes: +HYDROXYZINE HCL25 MG PO; +LACTULOSE10 GM/151 PO; +MIRALAX17 GM PO; +MIRTAZAPINE15 MG PO; +XIFAXAN550 MG PO
[2025-02-04] MEDS ORDERED: CARVEDILOL3.125 MG PO (22:24)
[2025-02-04] MEDS ORDERED: SPIRONOLACTONE100 MG NG (22:24)
[2025-02-04] MEDS ORDERED: FUROSEMIDE40 MG PO (22:24)
[2025-02-04] MEDS ORDERED: MIRTAZAPINE30 MG PO (22:25)
[2025-02-04 22:26] LABS: BASOPHILS 0.4 % (0.2-1.2); EOSINOPHILS 1.5 % (0.8-7.0); LYMPHOCYTES 3.6 % (21.8-53.1); MCH 31.2 PG (25.7-32.2); MCHC 33.9 g/dL (32.3-36.5); MCV 92.1 fL (79.0-92.2); MONOCYTES 10.9 % (5.3-12.2); NEUTROPHILS 83.2 % (34.0-67.9); RBC 3.30 M/uL (4.63-6.08)
[2025-02-04 22:37] LABS: ALT (SGPT) 32.0 U/L (14-59); AST (SGOT) 31.0 U/L (15-37); GLOMERULAR FILTRATION RATE,EST 65.0 mL/min (>60); PROTEIN, TOTAL 5.9 g/dL (6.4-8.2); UREA NITROGEN 26.0 mg/dL (7-18)
[2025-02-04] MEDS ORDERED: SODIUM CHLORIDE 0.9% 1,000 ML IV PRN (22:45)
[2025-02-04 23:04] LABS: LACTIC ACID, BLOOD 1.6 mmol/L (0.4-2.0)
[2025-02-04] MEDS ORDERED: LACTATED RINGER'S 1,000 ML IV ONE (23:15)
[2025-02-05] MEDS ORDERED: LIDOCAINE 2% VISCOUS 6 ML SYR MM ONE (00:30)
[2025-02-05 00:34] LABS: ABO O; RH POSITIVE
[2025-02-05 00:35] LABS: ANTIBODY SCREEN NEGATIVE
[2025-02-05 00:54] LABS: BLOOD/HGB, URINE SMALL (Negative); KETONE, URINE TRACE (Negative); LEUK ESTERASE, URINE NEGATIVE (negative); NITRITE, URINE NEGATIVE (negative)
[2025-02-05 01:01] LABS: EPITHELIAL CELLS, URINE SQUAMOUS 1+ /lpf (0-1+)
[2025-02-05 01:02] LABS: BACTERIA, URINE RARE /hpf (negative); CASTS, URINE NONE SEEN \\lpf; CRYSTALS, URINE NONE SEEN (0-1+); REFLEX CULTURE, URINE No (No)
[2025-02-05] MEDS ORDERED: METRONIDAZOLE500 MG PO ×2 (01:35→01:38)
[2025-02-05] MEDS ORDERED: CIPRO500 MG PO (01:35)
[2025-02-05] MEDS ORDERED: CIPROFLOXACIN 500 MG TAB PO ONE (01:45)
[2025-02-05 01:58] VITALS: BP 84/56
--- NOTE | 2025-02-05 17:52 | EKG ---
[facility] [address] [place] [address] Signed Sinus rhythm with 1st degree AV block Right bundle branch block Abnormal ECG When compared with ECG of 03-JUL-2024 20:01, premature supraventricular complexes are no longer present QT has shortened Confirmed by William Banda DO ([id number]) on 02/05/2025 5:52:35 PM Electronically Signed By: WILLIAM BANDA DO 02/05/25 175 PATIENT NAME: TOPHER SULLIVAN Electrocardiogram DATE OF : 42 PHYSICIAN: WILLIAM BANDA DO REPORT #: [id number] REPORT IS CONFIDENTIAL AND NOT TO BE RELEASED WITHOUT AUTHORIZATION
== END 2025-02-05 01:59 | disposition home or self-care (01) ==
LOC: ED 22:09
PROVIDERS: Internal Medicine
DX: K52.9 Noninfective gastroenteritis and colitis, unspecified (principal); R50.9 Fever, unspecified; I10 Essential (primary) hypertension; Z87.891 Personal history of nicotine dependence; Z88.8 Allergy status to other drugs, medicaments and biological substances
CPT/HCPCS: 36415; 51701; 51798; 71045; 74177; 80053; 81001; 82140; 83605; 83735; 84484; 85025; 86850; 86900; 86901; 93005; 93010; 96361; 96365; 99285-25; J0696; J7030; J7121; Q9967